=== PATIENT | male | born 1995 | race African-American/Black ===

== ENCOUNTER 2019-12-16 12:10 | Emergency (ER) | payer MEDICARE, MEDICAID, SELFPAY ==
--- NOTE | ~2019-12-16 | CT_ITS ---
EXAMINATION: CT lumbar spine wo con DATE: 12/16/2019 13:22 FIBER PRODUCT CUTTING MACHINE OPERATOR INDICATION: TECHNIQUE: Computed tomography (CT) of the lumbar spine was performed without intravenous contrast. T he dose-length product was 351.18 mGy-cm. COMPARISON: None FINDINGS: Normal lumbar lordosis. Vertebral body and disc heights are preserved. No significant víctor padma soft tissue abnormality. The following disc levels are specifically discussed: T11-T12: The disc does not extend beyond the endplate margin. There is no facet joint osteoarthritis. There is no neural foraminal stenosis. There is no central canal stenosis. T12-L1: The disc does not extend beyond the endplate margin. There is no facet joint osteoarthritis. There is no neural foraminal stenosis. There is no central canal stenosis. L1-L2: The disc does not extend beyond the endplate margin. There is no facet joint osteoarthritis. T here is no neural foraminal stenosis. There is no central canal stenosis. L2-L3: The disc does not extend beyond the endplate margin. There is no facet joint osteoarthritis. T here is no neural foraminal stenosis. There is no central canal stenosis. L3-L4: The disc does not extend beyond the endplate margin. There is no facet joint osteoarthritis. T here is no neural foraminal stenosis. There is no central canal stenosis. L4-L5: The disc does not extend beyond the endplate margin. There is no facet joint osteoarthritis. T here is no neural foraminal stenosis. There is no central canal stenosis. L5-S1: The disc does not extend beyond the endplate margin. There is no facet joint osteoarthritis. T here is no neural foraminal stenosis. There is no central canal stenosis. IMPRESSION: 1. No significant abnormality of the lumbar spine. Reviewed, dictated and finalized at location A. R PRODUCT CUTTING MACHINE OPERATOR
--- NOTE | ~2019-12-16 | CT_ITS ---
EXAMINATION: CT BRAIN W/O DATE: 12/16/2019 13:13 INDICATION: Left arm and leg numbness. TECHNIQUE: Computed tomography (CT) of the head was performed without intravenous contrast. The dose- length product was 351.18 mGy-cm. The mA was adjusted according to patient size. Iterative reconstruc tion technique was employed. COMPARISON: CT dated 04/22/2017 FINDINGS: Normal brain parenchymal volume for age. Normal dukes-white differentiation. No acute intrac ranial hemorrhage, infarction, mass or mass effect. No ventriculomegaly or midline shift. Midline sagittal images demonstrate a normal corpus callosum, c raniovertebral junction and sella turcica. Basilar cisterns are patent. Paranasal sinuses and mastoids are pneumatized. No depressed skull fractures. IMPRESSION: 1. No acute intracranial abnormality. Reviewed, dictated and finalized at location A. ION JOURNALIST
--- NOTE | ~2019-12-16 | CT_ITS ---
EXAMINATION: CT cervical spine wo con DATE: 12/16/2019 13:13 INDICATION: Left arm numbness. TECHNIQUE: Computed tomography (CT) of the cervical spine was performed without intravenous contrast. The dose-length product was 351.18 mGy-cm. Automated exposure control and iterative reconstruction t echnique were employed. COMPARISON: None FINDINGS: Normal cervical alignment. Vertebral body and disc heights are preserved. Lung apices are n ormal. No significant paraspinal soft tissue abnormality. The following disc levels are specifically discussed: C2-C3: The disc does not extend beyond the endplate margin. There is no uncovertebral joint osteoarth ritis. There is no facet joint osteoarthritis. There is no neural foraminal stenosis. There is no petros tral canal stenosis. C3-C4: The disc does not extend beyond the endplate margin. There is no uncovertebral joint osteoarth ritis. There is no facet joint osteoarthritis. There is no neural foraminal stenosis. There is no petros tral canal stenosis. C4-C5: The disc does not extend beyond the endplate margin. There is no uncovertebral joint osteoarth ritis. There is no facet joint osteoarthritis. There is no neural foraminal stenosis. There is no petros tral canal stenosis. C5-C6: The disc does not extend beyond the endplate margin. There is no uncovertebral joint osteoarth ritis. There is no facet joint osteoarthritis. There is no neural foraminal stenosis. There is no petros tral canal stenosis. C6-C7: The disc does not extend beyond the endplate margin. There is no uncovertebral joint osteoarth ritis. There is no facet joint osteoarthritis. There is no neural foraminal stenosis. There is no petros tral canal stenosis. C7-T1: The disc does not extend beyond the endplate margin. There is no uncovertebral joint osteoarth ritis. There is no facet joint osteoarthritis. There is no neural foraminal stenosis. There is no petros tral canal stenosis. IMPRESSION: 1. No acute abnormality of the cervical spine. No significant spinal stenosis. Reviewed, dictated and finalized at location A. DATA HADOOP DEVELOPER
[2019-12-16 12:16] VITALS: BP 131/70; PULSE 66; RESP 16; TEMP 36.4; O2SAT 100
--- NOTE | 2019-12-16 12:17 | ED.BACK ---
HPI - Back Pain/Injury General Chief Complaint: Back Pain/Injury Stated Complaint: back pain/arm/leg numbness Time Seen by Provider: 12/16/19 12:17 Source: patient Mode of arrival: ambulatory Limitations: no limitations History of Present Illness HPI Narrative: A 24 y/o male pt presents to the ED, with c/o chronic low back pain and intermittent numbness in his lt upper and lower extremities that is worsening. Pt states that he has a hx of frequent falls and has fallen twice in the past month. He notes that his entire LLE goes numb causing him to trip and fall. Pt reports a new onset of LUE numbness that began yesterday, but notes the LLE numbness and lower back pain is chronic x 2 years. He states that any strenuous activities aggravates his Sx, and notes taking a Percocet last night with little relief. Pt was Dx with spinal stenosis x 2 years ago and was referred to a specialist at [facility], but states that it has been over a year since his last appointment. He notes having mild CP, but states this is chronic and is associated with his heart murmur. He also reports having blurry vision and a MIDDLETON yesterday, but states that those Sx have improved. Pt denies any SOB, or neck pain. Pt's PCP is Dr. Stanley. elicited complaint: back pain Pertinent past history: prior back pain Onset (ago): day(s) (1) Timing: progressively worsening Similar Symptoms Previously: Yes Radiation: other (LUE, LLE numbness) Exacerbating factors: other (strenuous activity) Associated symptoms: numbness, difficulty walking (frequent falls) and other (blurry vision, headache, low back pain) Treatments prior to arrival: acetaminophen (Percocet) Related Data Allergies Allergy/AdvReac Type Severity Reaction Status Date / Time shellfish derived Allergy Severe ANAPHYLAXIS Verified 12/16/19 12:21 Review of Systems Review of Systems: All systems reviewed & are unremarkable except as noted in HPI and below Constitutional: Constitutional: Reports headache(s) (improved) Cardiovascular: Cardiovascular: Reports chest pain (mild, chronic) Respiratory: Respiratory: Denies dyspnea Musculoskeletal: Musculoskeletal: Reports back pain (lower) and Denies neck pain Neurologic: Reports frequent falls, Reports numbness (LUE, LLE) and Reports other (blurry vision improved) [facility] Past Medical History Medical History (Updated 12/16/19 @ 14:37 by Abiola Carey MD) Anxiety Depression Migraines PTSD (post-traumatic stress disorder) Renal infarct Suicide attempt by drug overdose Surgical History Surgical History (Updated 12/16/19 @ 14:18 by Edgar Lizama [employer]) History of vasectomy Social History Social History (Updated 12/16/19 @ 14:16 by Edgar Lizama [employer]) Smoking status: Current every day smoker Tobacco type: cigarettes Alcohol intake: former Substance use: current Substance use type: marijuana Gender identity (if verbalized by the patient): Male Exam Const: General: cooperative, no acute distress and alert Nutritional Appearance: well nourished Orientation/consciousness: patient oriented x3 Limitations: no limitations HENMT: Mouth: Yes lip normal and Yes moist mucous membranes Resp: Effort & Inspection: normal respiratory effort Auscultation: clear to auscultation bilaterally Cardio: Rate: regular rate Rhythm: regular rhythm GI: GI Palp: Yes abdominal tenderness (mild epigastric) and Yes Soft to palpation Auscultation: normal bowel sounds Back/Spine/Pelvis: Cervical Spine: Cervical spine tenderness (upper) Sacroiliac joints: bilaterally tender to palpation Skin: General skin exam: normal color Neuro: General: patient oriented x3 and deep tendon reflexes 2+ bilaterally Cognition (Neuro): normal cognition Speech: normal speech Motor exam (neuro): 5/5 motor strength present throughout Sensory Exam: Sensory deficit (Neuro) (decreased fine sensation LUE, LLE) Deep tendon reflexes (DTR's): Right brachioradialis reflex intensity gr
--- NOTE | 2019-12-16 12:36 | ECG_ITS ---
Measurements Intervals [place] Rate: 53 P: 40 NC: 150 QRS: 26 QRSD: 102 T: 21 QT: 408 QTc: 383 Interpretive Statements SINUS BRADYCARDIA ST ELEVATION IN DIFFUSE LEADS, PROBABLY EARLY REPOLARIZATION BASELINE WANDER- I, II, AVR, AVL, AVF BORDERLINE ECG Electronically Signed On 12-16-2019 17:32:48 FULL STACK PYTHON DEVELOPER by Bartolome Lambert D.O.
[2019-12-16 12:55] LABS: Basophils Absolute Auto 0.1 K/mm3 (0.0-0.1); Basophils Percent Auto 0.6 % (0.2-1.2); Eosinophils Absolute Auto 0.1 K/mm3 (0-0.3); Eosinophils Percent Auto 1.1 % (0-4.4); Hemoglobin 15.3 g/dL (14.0-18.0); Immature Granulocyte Absolute 0.02 K/mm3 (0.00-0.031); Immature Granulocyte Percent A 0.2 % (0-0.5); Lymphocytes Absolute Auto 2.15 K/mm3 (0.9-3.2); Lymphocytes Percent Auto 25.9 % (18.3-44.2); Mean Corpuscular HGB Conc 33.3 g/dl (32-36); Mean Corpuscular Hemoglobin 29.8 pg (26-34); Mean Corpuscular Volume 89.7 fl (80-100); Mean Platelet Volume 9.8 fl (7.4-10.4); Monocytes Absolute Auto 0.5 K/mm3 (0.1-0.6); Monocytes Percent Auto 6.3 % (2.6-8.5); Neutrophils Absolute Auto 5.5 K/mm3 (1.3-6.7); Neutrophils Percent Auto 65.9 % (45.5-73.1); Platelet Count Result 225 k/mm3 (150-375); Red Blood Count 5.13 M/mm3 (4.6-6.20); Red Cell Distribution Width 12.5 % (11.5-14.5); White Blood Count 8.3 K/mm3 (4.5-10.0)
[2019-12-16 12:59] LABS: Add Urine Microscopic? YES; Appearance Urine Clear (Clear); Bilirubin Urine Negative (Negative); Blood Urine 1+ (Negative); Color Urine Yellow (Yellow); Glucose Urine UA Negative (Negative); Ketones Urine Trace mg/dL (Negative); Leukocyte Esterase Ur Negative LEU/UL (Negative); Mucus Urine Rare /lpf; Nitrate Urine Negative (Negative); Protein Urine 1+ mg/dL (Negative); RBC Urine 0-2 /hpf (0-2); Urobilinogen Urine Negative mg/dL (<2.0); WBC Urine 0-3 /hpf
[2019-12-16 13:02] LABS: Specific Grav Ur 1.031 (1.001-1.035)
[2019-12-16 13:05] LABS: Prothrombin Time 12.7 Seconds (11.1-14.7)
[2019-12-16 13:06] LABS: Partial Thromboplastin Time 28.9 SECONDS (22.3-36.8)
[2019-12-16 13:07] LABS: Alanine Aminotransferase 26 U/L (4-50); Albumin Level 4.4 g/dL (3.5-5.1); Alkaline Phosphatase 67 U/L (38-126); Aspartate Amino Transferase 41 U/L (17-59); Blood Urea Nitrogen 14 mg/dL (9-20); Calcium 9.1 mg/dL (8.4-10.2); Carbon Dioxide 29 mmol/L (22-30); Chloride 102 mmol/L (98-107); Estimated CRCL calculation 72 ml/min; Estimated Glomerular Filt Rate > 60; Glucose 91 mg/dL (75-110); Potassium 4.2 mmol/L (3.4-5.0); Sodium 139 mmol/L (137-145)
[2019-12-16] MEDS: KETOROLAC 30 MG/ML VIAL (*BKC) IV PUSH (13:12)
[2019-12-16 13:19] LABS: Troponin I < 0.012 ng/mL (0.000-0.034)
[2019-12-16 14:51] VITALS: BP 128/79; PULSE 56; RESP 16; O2SAT 99
== END 2019-12-16 14:52 | disposition home or self-care (01) ==
PROVIDERS: Emergency Provider Emergency Medicine; PCP Family Medicine
DX: M54.5 Low back pain (principal); R20.2 Paresthesia of skin; F17.210 Nicotine dependence, cigarettes, uncomplicated; G89.29 Other chronic pain; R00.1 Bradycardia, unspecified; R94.31 Abnormal electrocardiogram [ECG] [EKG]; R01.1 Cardiac murmur, unspecified; R07.9 Chest pain, unspecified
CPT/HCPCS: 36415; 70450; 72125; 72131; 80053; 81001; 84484; 85025; 85610; 85730; 93005; 96374; 99284; J1885

== ENCOUNTER 2020-04-26 05:13 | Emergency (ER) | payer MEDICARE, MEDICAID, SELFPAY ==
--- NOTE | ~2020-04-26 | XR_ITS ---
EXAMINATION: XR hip BI 2V w AP pelvis DATE: 04/26/2020 06:17 INDICATION: Pelvic bone pain TECHNIQUE: Anteroposterior view of the pelvis and anteroposterior and frog-leg lateral views of the l eft hip and anteroposterior and frog-leg lateral views of the right hip and were obtained. COMPARISON: None. FINDINGS: Alignment is normal. No fracture or suspected avascular necrosis. Bilateral hip joint spaces are norm al. Suggestion of mild anterior acetabular over coverage on the left although there is minimal leftwa rd rotation of the pelvis which reduces specificity. No suspicious lytic or blastic bone lesions. Sof t tissues are unremarkable. IMPRESSION: 1. Likely anterior acetabular over coverage on the left can predispose towards pincer-type femoral ac etabular impingement. Otherwise normal study. Reviewed, dictated and finalized at location A. IMPRESSION: 1. Likely anterior acetabular over coverage on the left can predispose towards pincer-type femoral acetabular impingement. Otherwise normal study.
--- NOTE | ~2020-04-26 | XR_ITS ---
EXAMINATION: XR chest 2V DATE: 04/26/2020 06:16 INDICATION: Midsternal chest pain TECHNIQUE: PA and lateral views of the chest were obtained. COMPARISON: Chest radiograph dated 06/08/2019 FINDINGS: The lungs remain clear with no focal airspace opacities, pulmonary edema, pleural effusion or pneumot horax. The cardiomediastinal silhouette is normal. Visualized bones and soft tissues are unremarkable . IMPRESSION: 1. Normal chest radiograph. Reviewed, dictated and finalized at location A. IMPRESSION: 1. Normal chest radiograph.
[2020-04-26 05:16] VITALS: BP 144/95; PULSE 58; RESP 18; TEMP 36.1; O2SAT 100
--- NOTE | 2020-04-26 05:30 | ECG_ITS ---
Measurements Intervals [place] Rate: 48 P: 21 WA: 162 QRS: 36 QRSD: 100 T: 42 QT: 415 QTc: 372 Interpretive Statements SINUS BRADYCARDIA WITH SINUS ARRHYTHMIA ST ELEVATION IN DIFFUSE LEADS- PROBABLY EARLY REPOLARIZATION ABNORMAL ECG Electronically Signed On 04-26-2020 7:33:41 CDT by Bartolome Lambert D.O.
--- NOTE | 2020-04-26 05:30 | ED.CHESTPAIN ---
HPI - Chest Pain General Chief Complaint: Chest Pain Stated Complaint: cp Time Seen by Provider: 04/26/20 05:29 Source: patient Mode of arrival: ambulatory Limitations: no limitations History of Present Illness HPI narrative: Patient is a 24-year-old male who presents for evaluation of bone pain. Patient reports he has had bone pain over the past several weeks. He states he has intermittent bone pain in his bilateral arms and in his pelvis. Reports it is aching in nature, no severe pain currently. When asked if he can pinpoint the pain to shoulders or elbows, hips, he states he is unable to do this. He denies current chest or back pain. Patient's girlfriend is concerned that he has knots all over his body patient denies any rashes, no lower pelvic pain or urinary symptoms. No fever or chills. Related Data Allergies Allergy/AdvReac Type Severity Reaction Status Date / Time shellfish derived Allergy Severe ANAPHYLAXIS Verified 12/16/19 12:21 Review of Systems Review of Systems: Narrative: CONSTITUTIONAL: Denies fever, chills EYES: Denies visual changes, redness, or discharge. ENT: Denies rhinorrhea, congestion CARDIOVASCULAR: Denies chest pain, palpitations, or edema. RESPIRATORY: Denies cough or dyspnea. GASTROINTESTINAL: Denies abdominal pain, nausea, vomiting, or diarrhea. GENITOURINARY: Denies dysuria or hematuria. SKIN: Denies rash or itching. MUSCULOSKELETAL: Denies back pain, reports allover joint pain, denies myalgias NEUROLOGIC: Denies headache, numbness, or weakness. [facility] Past Medical History Medical History Anxiety Depression Migraines PTSD (post-traumatic stress disorder) Renal infarct Schizophrenia Suicide attempt by drug overdose Surgical History Surgical History History of vasectomy Social History Social History Smoking status: Current every day smoker Tobacco type: cigarettes Alcohol intake: former Substance use: current Substance use type: marijuana Gender identity (if verbalized by the patient): Male Exam Narrative: Exam Narrative: GENERAL: Awake, alert, conversant HEAD: Normocephalic, atraumatic. EYES: PERRLA and EOMI. ENT: Nares clear, no rhinorrhea or epistaxis. Mucous membranes moist. NECK: Supple. CHEST: No respiratory distress, breathing even and non labored HEART: Regular rate, sinus rhythm ABDOMEN:Non distended, non tender EXTREMITIES: Normal range of motion. No edema. SKIN: Warm, dry, no rash. NEURO:No focal deficits. Alert and oriented x3 Course Vital Signs Vital signs: Vital Signs Temperature 36.1 C L 04/26/20 05:16 Pulse Rate 58 L 04/26/20 05:16 Respiratory Rate 18 04/26/20 05:16 Blood Pressure 144/95 H 04/26/20 05:16 Pulse Oximetry 100 04/26/20 05:16 Temperature 36.1 C L 04/26/20 06:45 Pulse Rate 58 L 04/26/20 05:16 Respiratory Rate 18 04/26/20 05:16 Blood Pressure 144/95 H 04/26/20 05:16 Pulse Oximetry 100 04/26/20 05:16 MDM - Chest Pain MDM Narrative Medical decision making narrative: Patient presented for chronic history of all over bone pain. Patient denied any chest pain on my exam. EKG without acute ischemic changes. On exam, patient is well-appearing. He does not have any bony tenderness, compartments of the upper and lower extremities are soft, warm and well-perfused. No gross deformities or rashes. Patient laboratory results are reassuring aside from a slightly elevated creatinine kinase, but this would not be consistent with rhabdomyolysis. Patient was advised hydration, I paged the patient's on-call primary care provider to arrange for follow-up. No acute kidney injury. No urinary symptoms. Patient was discharged home with PCP follow-up, negative imaging of pelvis and chest. Differential Diagnosis Differential diagnosis: Likely costochon
--- NOTE | 2020-04-26 05:54 | PC.NURSE ---
Per EDP Freddie, no dose of aspirin needed.
[2020-04-26] MEDS: KETOROLAC (*BKC) 60 MG/2 ML VIAL 30 MG IM (06:15)
[2020-04-26 06:25] LABS: Basophils Absolute Auto 0.1 K/mm3 (0.0-0.1); Basophils Percent Auto 0.7 % (0.2-1.2); Eosinophils Absolute Auto 0.2 K/mm3 (0-0.3); Eosinophils Percent Auto 2.4 % (0-4.4); Hematocrit 42.5 % (42.0-52.0); Hemoglobin 14.9 g/dL (14.0-18.0); Immature Granulocyte Absolute 0.03 K/mm3 (0.00-0.031); Immature Granulocyte Percent A 0.3 % (0-0.5); Lymphocytes Absolute Auto 3.19 K/mm3 (0.9-3.2); Lymphocytes Percent Auto 32.1 % (18.3-44.2); Mean Corpuscular HGB Conc 35.1 g/dl (32-36); Mean Corpuscular Hemoglobin 30.8 pg (26-34); Mean Platelet Volume 9.6 fl (7.4-10.4); Monocytes Absolute Auto 0.6 K/mm3 (0.1-0.6); Neutrophils Absolute Auto 5.8 K/mm3 (1.3-6.7); Neutrophils Percent Auto 58.5 % (45.5-73.1); Platelet Count Result 194 k/mm3 (150-375); Red Blood Count 4.83 M/mm3 (4.6-6.20); Red Cell Distribution Width 12.8 % (11.5-14.5); White Blood Count 9.9 K/mm3 (4.5-10.0)
[2020-04-26 06:37] LABS: Blood Urea Nitrogen 13 mg/dL (9-20); Calcium 8.7 mg/dL (8.4-10.2); Carbon Dioxide 26 mmol/L (22-30); Chloride 105 mmol/L (98-107); Estimated Glomerular Filt Rate > 60; Glucose 97 mg/dL (75-110); Potassium 4.2 mmol/L (3.4-5.0); Sodium 139 mmol/L (137-145)
[2020-04-26 06:38] LABS: Creatine Kinase 960 U/L (55-170)
[2020-04-26 06:45] VITALS: TEMP 36.1
[2020-04-26 07:04] VITALS: BP 128/71; PULSE 48; RESP 21; TEMP 36.8; O2SAT 99
== END 2020-04-26 07:17 | disposition home or self-care (01) ==
PROVIDERS: Emergency Provider Emergency Medicine; PCP Family Medicine
DX: M25.511 Pain in right shoulder (principal); R74.8 Abnormal levels of other serum enzymes; F17.210 Nicotine dependence, cigarettes, uncomplicated; R00.1 Bradycardia, unspecified; R94.31 Abnormal electrocardiogram [ECG] [EKG]; R93.6 Abnormal findings on diagnostic imaging of limbs
CPT/HCPCS: 36415; 71046; 73521; 80048; 82550; 85025; 93005; 96372; 99284; J1885

== ENCOUNTER 2020-05-04 12:55 | Emergency (ER) | payer MEDICARE, MEDICAID, SELFPAY ==
--- NOTE | ~2020-05-04 | CT_ITS ---
EXAMINATION: CT abdomen pelvis w con DATE: 05/04/2020 14:39 INDICATION: Lower abdominal pain and nausea TECHNIQUE: Computed tomography (CT) of the abdomen and pelvis was performed with 100 cc Omnipaque 350 intravenous contrast. The dose-length product was 375.78 mGy-cm. Automated exposure control and iter ative reconstruction technique were employed. COMPARISON: CT dated 06/28/2019. FINDINGS: Lung bases are unremarkable. Heart size normal. No significant pleural or pericardial effus ion. No significant vascular abnormality. No lymphadenopathy. The liver, spleen, pancreas, adrenal glands and kidneys are unremarkable. Gallbladder is present. Non obstructive bowel gas pattern. No abnormal pelvic masses or fluid collections. Normal appendix. No ev idence for diverticulitis. No free air or free fluid. No acute osseous abnormality. IMPRESSION: 1. No acute abdominal abnormality. Reviewed, dictated and finalized at location A.
--- NOTE | ~2020-05-04 | XR_ITS ---
EXAMINATION: XR chest 1V portable DATE: 05/04/2020 14:19 INDICATION: Vomiting. Right lower abdominal tenderness. TECHNIQUE: A single frontal view of the chest was obtained. COMPARISON: Chest 2 views 04/26/2020 FINDINGS: The chest demonstrates clear lungs without pneumonia, pleural effusion, or pneumothorax. Th e heart size is normal. IMPRESSION: 1. No acute cardiopulmonary disease. Reviewed, dictated and finalized at location A.
--- NOTE | ~2020-05-04 | XR_ITS ---
EXAMINATION: XR wrist LT min 3V DATE: 05/04/2020 14:20 INDICATION: Left wrist pain. TECHNIQUE: 4 views of left wrist were obtained. COMPARISON: None. FINDINGS: Bone alignment is normal. No fracture. Joint spaces are well maintained. IMPRESSION: 1. Normal left wrist. Reviewed, dictated and finalized at location A. IMPRESSION: 1. Normal left wrist.
[2020-05-04 12:57] VITALS: BP 136/85; PULSE 71; RESP 15; TEMP 36.3; O2SAT 99
[2020-05-04 13:09] LABS: Basophils Absolute Auto 0.1 K/mm3 (0.0-0.1); Basophils Percent Auto 0.4 % (0.2-1.2); Eosinophils Absolute Auto 0.1 K/mm3 (0-0.3); Hematocrit 47.5 % (42.0-52.0); Hemoglobin 16.6 g/dL (14.0-18.0); Immature Granulocyte Absolute 0.04 K/mm3 (0.00-0.031); Immature Granulocyte Percent A 0.3 % (0-0.5); Lymphocytes Absolute Auto 2.01 K/mm3 (0.9-3.2); Lymphocytes Percent Auto 16.1 % (18.3-44.2); Mean Corpuscular HGB Conc 34.9 g/dl (32-36); Mean Corpuscular Hemoglobin 30.3 pg (26-34); Mean Corpuscular Volume 86.8 fl (80-100); Mean Platelet Volume 9.7 fl (7.4-10.4); Monocytes Percent Auto 7.9 % (2.6-8.5); Neutrophils Absolute Auto 9.3 K/mm3 (1.3-6.7); Neutrophils Percent Auto 74.3 % (45.5-73.1); Platelet Count Result 225 k/mm3 (150-375); Red Blood Count 5.47 M/mm3 (4.6-6.20); Red Cell Distribution Width 12.6 % (11.5-14.5); White Blood Count 12.5 K/mm3 (4.5-10.0)
[2020-05-04 13:20] LABS: Alanine Aminotransferase 26 U/L (4-50); Albumin Level 4.8 g/dL (3.5-5.1); Alkaline Phosphatase 90 U/L (38-126); Aspartate Amino Transferase 32 U/L (17-59); Bilirubin,Total 1.2 mg/dL (0.2-1.3); Blood Urea Nitrogen 11 mg/dL (9-20); Calcium 9.5 mg/dL (8.4-10.2); Carbon Dioxide 24 mmol/L (22-30); Chloride 104 mmol/L (98-107); Estimated CRCL calculation 78 ml/min; Estimated Glomerular Filt Rate > 60; Glucose 108 mg/dL (75-110); Lipase 21 U/L (23-300); Potassium 4.4 mmol/L (3.4-5.0); Sodium 137 mmol/L (137-145)
[2020-05-04 13:43] LABS: Add Urine Microscopic? YES; Appearance Urine Clear (Clear); Bilirubin Urine Negative (Negative); Blood Urine Negative (Negative); Color Urine Straw (Yellow); Glucose Urine UA Negative (Negative); Ketones Urine Negative (Negative); Leukocyte Esterase Ur Negative LEU/UL (Negative); Mucus Urine Rare /lpf; Nitrate Urine Negative (Negative); Protein Urine Negative (Negative); RBC Urine 0-2 /hpf (0-2); Urobilinogen Urine Negative mg/dL (<2.0); WBC Urine 0-3 /hpf
--- NOTE | 2020-05-04 14:01 | ED.NAVMDI ---
HPI - Nausea/Vomiting/Diarrhea General Chief complaint: Nausea/Vomiting/Diarrhea Stated complaint: Vomiting Time Seen by Provider: 05/04/20 13:50 Source: patient Mode of arrival: ambulatory Limitations: no limitations History of Present Illness HPI Narrative: This patient is a 24 year old male who presents for evaluation of nausea, vomiting since yesterday. He states he had abdominal pain which has resolved and he denies diarrhea. He also reports mild cough but no shortness of breath. He also reports sore throat. He denies sick contacts. MD elicited complaint: nausea and vomiting Onset (ago): day(s) (1) Associated nausea: Yes Associated abdominal pain: Yes Pain consistency: now resolved Exacerbating factors: eating Associated symptoms: fever/chills and nausea/vomiting Related Data Allergies Allergy/AdvReac Type Severity Reaction Status Date / Time shellfish derived Allergy Severe ANAPHYLAXIS Verified 05/04/20 13:01 Review of Systems Review of Systems: All systems reviewed & are unremarkable except as noted in HPI and below Constitutional: Constitutional: Denies chills and Reports fever(s) ENT: Reports sore throat Cardiovascular: Cardiovascular: Denies chest pain Respiratory: Respiratory: Reports cough and Denies dyspnea Gastrointestinal: Gastrointestinal: Reports abdominal pain, Reports nausea and Reports vomiting PMFSH Social History Social History Smoking status: Current every day smoker Tobacco type: cigarettes Alcohol intake: former Substance use: current Substance use type: marijuana Gender identity (if verbalized by the patient): Male Exam Narrative: Exam Narrative: GENERAL: Well-appearing, well-nourished, and in no acute distress. HEAD: Normocephalic, atraumatic EYES: PERRLA and EOMI, conjunctiva clear without discharge EARS: TM's clear bilaterally without erythema or dullness NOSE: Nares clear, no rhinorrhea or epistaxis THROAT:Mucous membranes moist, Oropharynx normal without erythema, exudate, peritonsillar swelling or fluctuance NECK: Supple, without lymphadenopathy or mass RESPIRATORY: No respiratory distress, Airway patent, Respirations non-labored, Clear to auscultation without rales, rhonchi or wheeze HEART: Regular rate and rhythm. No murmur heard. Normal peripheral pulses. ABDOMEN: Soft, RLQ tenderness, nondistended, normal active bowel sounds. No masses. No rebound or guarding, No organomegaly. EXTREMITIES: No edema, normal strength with full range of motion. SKIN: Warm, dry, normal color without rash NEURO: Alert and oriented x3. CN 2-12 grossly intact. No focal deficits. PSYCH: Normal mood and affect. Course Reevaluation(s) Reevaluation #1: Patient states he feels better. He was able to tolerate fluid and crackers. I have discussed with him about testing for COVID and quaranting. His primary care physician is Dr. Stanley. Date: 05/04/20 Time: 16:23 Vital Signs Vital signs: Vital Signs Temperature 97.3 F L 05/04/20 12:57 Pulse Rate 71 05/04/20 12:57 Respiratory Rate 15 05/04/20 12:57 Blood Pressure 136/85 05/04/20 12:57 Pulse Oximetry 99 05/04/20 12:57 Temperature 97.3 F L 05/04/20 12:57 Pulse Rate 80 05/04/20 17:16 Respiratory Rate 17 05/04/20 17:16 Blood Pressure 136/88 05/04/20 17:16 Pulse Oximetry 97 05/04/20 17:16 MDM - Nausea/Vomiting/Diarrhea Lab Data Attestation: I reviewed the patient's lab results. Result diagrams: 05/04/20 13:02 05/04/20 13:02 Labs: Lab Results 05/04/20 05/04/20 05/04/20 Range/Units 13:02 13:02 13:10 WBC 12.5 H (4.5-10.0) K/mm3 RBC 5.47 (4.6-6.20) M/mm3 Hgb 16.6 (14.0-18.0) g/dL Hct 47.5 (42.0-52.0) % MCV 86.8 (80-100) fl MCH 30.3 (26-34) pg MCHC 34.9 (32-36) g/dl RDW 12.6 (11.5-14.5) % Plt Count 225 (150-375) k/mm3 MPV 9.7 (7.4-10.4)
[2020-05-04] MEDS: LACTATED RINGERS 1,000 ML 999 ML IV CONT (14:36)
[2020-05-04] MEDS: ONDANSETRON INJ 4 MG/2 ML VIAL IV PUSH ×2 (14:36→15:20)
[2020-05-04 17:16] VITALS: BP 136/88; PULSE 80; RESP 17; O2SAT 97
[2020-05-06 10:43] LABS: SARS-CoV-2 RNA PCR Negative
== END 2020-05-04 17:20 | disposition home or self-care (01) ==
PROVIDERS: Emergency Medicine; Emergency Provider General Practice; PCP Family Medicine
DX: R11.2 Nausea with vomiting, unspecified (principal); Z20.828 Contact with and (suspected) exposure to other viral communicable diseases; F17.210 Nicotine dependence, cigarettes, uncomplicated; M25.532 Pain in left wrist
CPT/HCPCS: 36415; 71045; 73110; 74177; 80053; 81001; 83690; 85025; 87081; 87635; 87880; 96365; 96375; 96376; 99284; C9803; J0131; J2405; J7120; Q9967; U0003

== ENCOUNTER 2020-07-01 18:40 | Emergency (ER) | payer MEDICARE, MEDICAID, SELFPAY ==
[2020-07-01 18:52] VITALS: BP 138/82; PULSE 65; RESP 14; TEMP 36.9; O2SAT 100
[2020-07-01 18:55] VITALS: BP 138/82; PULSE 65; RESP 14; TEMP 36.9; O2SAT 100
[2020-07-01 19:07] LABS: Basophils Absolute Auto 0.1 K/mm3 (0.0-0.1); Basophils Percent Auto 0.6 % (0.2-1.2); Eosinophils Absolute Auto 0.1 K/mm3 (0-0.3); Eosinophils Percent Auto 0.7 % (0-4.4); Hematocrit 45.8 % (42.0-52.0); Hemoglobin 16.2 g/dL (14.0-18.0); Immature Granulocyte Absolute 0.03 K/mm3 (0.00-0.031); Immature Granulocyte Percent A 0.3 % (0-0.5); Lymphocytes Absolute Auto 2.54 K/mm3 (0.9-3.2); Lymphocytes Percent Auto 22.6 % (18.3-44.2); Mean Corpuscular HGB Conc 35.4 g/dl (32-36); Mean Corpuscular Hemoglobin 30.5 pg (26-34); Mean Corpuscular Volume 86.1 fl (80-100); Monocytes Absolute Auto 0.5 K/mm3 (0.1-0.6); Monocytes Percent Auto 4.8 % (2.6-8.5); Platelet Count Result 225 k/mm3 (150-375); Red Blood Count 5.32 M/mm3 (4.6-6.20); Red Cell Distribution Width 12.8 % (11.5-14.5); White Blood Count 11.2 K/mm3 (4.5-10.0)
[2020-07-01 19:20] LABS: Alanine Aminotransferase 20 U/L (4-50); Albumin Level 4.6 g/dL (3.5-5.1); Alkaline Phosphatase 77 U/L (38-126); Anion Gap 7 mmol/L (8-16); Aspartate Amino Transferase 39 U/L (17-59); Bilirubin,Total 1.1 mg/dL (0.2-1.3); Blood Urea Nitrogen 12 mg/dL (9-20); Calcium 9.1 mg/dL (8.4-10.2); Carbon Dioxide 26 mmol/L (22-30); Chloride 106 mmol/L (98-107); Estimated CRCL calculation 78 ml/min; Estimated Glomerular Filt Rate > 60; Glucose 98 mg/dL (75-110); Lipase 25 U/L (23-300); Potassium 3.8 mmol/L (3.4-5.0); Sodium 139 mmol/L (137-145)
[2020-07-01 19:20] LABS: Add Urine Microscopic? YES; Appearance Urine Clear (Clear); Bilirubin Urine Negative (Negative); Blood Urine Negative (Negative); Color Urine Yellow (Yellow); Glucose Urine UA Negative (Negative); Ketones Urine Negative (Negative); Leukocyte Esterase Ur Negative LEU/UL (Negative); Nitrate Urine Negative (Negative); Protein Urine Negative (Negative); RBC Urine 0-2 /hpf (0-2); WBC Urine 0-3 /hpf
[2020-07-01] MEDS: SODIUM CHLORIDE 0.9% IV 1,000 ML 999 ML IV CONT (19:47)
[2020-07-01] MEDS: METOCLOPRAMIDE HCL INJ 10 MG/2 ML VIAL IV PUSH (19:48)
[2020-07-01] MEDS: FAMOTIDINE 20 MG/2 ML VIAL IV PUSH (19:48)
--- NOTE | 2020-07-01 20:23 | ED.ABDPAIN ---
HPI - Abdominal Pain General Chief Complaint: Abdominal Pain Stated Complaint: n/v, constipated - blood in stool Time Seen by Provider: 07/01/20 18:58 Source: patient Mode of arrival: ambulatory Limitations: no limitations History of Present Illness HPI narrative: Patient is a 24-year-old male who presents with nausea and vomiting with history of similar occurrence in the past patient notes that he typically takes Reglan for his nausea and vomiting but today he has felt more nauseous with some mild discomfort of the abdomen denies any URI symptoms. Patient otherwise resting comfortably upon arrival in no distress denies rectal bleeding melena Related Data Allergies Allergy/AdvReac Type Severity Reaction Status Date / Time shellfish derived Allergy Severe ANAPHYLAXIS Verified 07/01/20 18:57 Review of Systems Review of Systems: All systems reviewed & are unremarkable except as noted in HPI and below PMFSH Past Medical History Medical History Anxiety Depression Migraines PTSD (post-traumatic stress disorder) Renal infarct Schizophrenia Suicide attempt by drug overdose Surgical History Surgical History History of vasectomy Social History Social History Smoking status: Current every day smoker Tobacco type: cigarettes Alcohol intake: former Substance use: current Substance use type: marijuana Gender identity (if verbalized by the patient): Male Sexual Orientation (if Verbalized by the Patient): Straight or Heterosexual Exam Narrative: Exam Narrative: GENERAL: Well-appearing, well-nourished, and in no acute distress. HEAD: Normocephalic, atraumatic. EYES: PERRLA and EOMI. ENT: Nares clear, no rhinorrhea or epistaxis. Mucous membranes moist. CHEST: Clear to auscultation. No respiratory distress. No wheezes rales or rhonchi HEART: Regular rate and rhythm. No murmur heard. Normal peripheral pulses. ABDOMEN: Soft, nontender, nondistended EXTREMITIES: Normal range of motion. No edema. SKIN: Warm, dry, no rash. NEURO: No focal deficits. Alert and oriented x3. PSYCH: Normal mood and affect. Course Course Emergency Course: Patient given medications in the emergency department with improvement of symptoms patient feels comfortable to go home patient will follow with primary care for further evaluation and was also given reasons to return Vital Signs Vital signs: Vital Signs Temperature 98.5 F 07/01/20 18:52 Pulse Rate 65 07/01/20 18:52 Respiratory Rate 14 07/01/20 18:52 Blood Pressure 138/82 07/01/20 18:52 Pulse Oximetry 100 07/01/20 18:52 Temperature 98.5 F 07/01/20 18:55 Pulse Rate 65 07/01/20 18:55 Respiratory Rate 14 07/01/20 18:55 Blood Pressure 138/82 07/01/20 18:55 Pulse Oximetry 100 07/01/20 18:55 MDM - Abdominal Pain MDM Narrative Medical decision making narrative: Patient in the room no high risk changes in the blood work felt appropriate for outpatient reevaluation given resolution of symptoms and nontender abdominal exam Lab Data Result diagrams: 07/01/20 18:50 07/01/20 18:50 Labs: Lab Results 07/01/20 07/01/20 07/01/20 Range/Units 18:50 18:50 19:04 WBC 11.2 H (4.5-10.0) K/mm3 RBC 5.32 (4.6-6.20) M/mm3 Hgb 16.2 (14.0-18.0) g/dL Hct 45.8 (42.0-52.0) % MCV 86.1 (80-100) fl MCH 30.5 (26-34) pg MCHC 35.4 (32-36) g/dl RDW 12.8 (11.5-14.5) % Plt Count 225 (150-375) k/mm3 MPV 10.0 (7.4-10.4) fl Immature Gran % (Auto) 0.3 (0-0.5) % Neut % (Auto) 71.0 (45.5-73.1) % Lymph % (Auto) 22.6 (18.3-44.2) % Eddy % (Auto) 4.8 (2.6-8.5) % Eos % (Auto) 0.7 (0-4.4) % Baso % (Auto) 0.6 (0.2-1.2) % Lymph # (Auto) 2.54 (0.9-3.2) K/mm3 Eddy # (Auto) 0.5 (0.1-0.6) K/mm3 Eos # (Au
[2020-07-01 20:51] VITALS: BP 125/63; PULSE 56; RESP 18; O2SAT 98
== END 2020-07-01 20:52 | disposition home or self-care (01) ==
PROVIDERS: Emergency Medicine; Emergency Provider Emergency Medicine; PCP Family Medicine
DX: R11.2 Nausea with vomiting, unspecified (principal); F17.210 Nicotine dependence, cigarettes, uncomplicated; F41.9 Anxiety disorder, unspecified; F32.9 Major depressive disorder, single episode, unspecified
CPT/HCPCS: 36415; 80053; 81001; 83690; 85025; 96361; 96365; 96375; 99284; J0131; J2765; J7030

== ENCOUNTER 2020-07-17 18:40 | Emergency (ER) | payer MEDICARE, MEDICAID, SELFPAY ==
[2020-07-17 18:45] VITALS: BP 131/76; PULSE 72; RESP 16; TEMP 36.5; O2SAT 100
[2020-07-17 19:01] LABS: Basophils Absolute Auto 0.1 K/mm3 (0.0-0.1); Basophils Percent Auto 0.8 % (0.2-1.2); Eosinophils Absolute Auto 0.2 K/mm3 (0-0.3); Eosinophils Percent Auto 2.3 % (0-4.4); Hematocrit 47.7 % (42.0-52.0); Hemoglobin 16.8 g/dL (14.0-18.0); Immature Granulocyte Absolute 0.03 K/mm3 (0.00-0.031); Immature Granulocyte Percent A 0.3 % (0-0.5); Lymphocytes Absolute Auto 2.84 K/mm3 (0.9-3.2); Lymphocytes Percent Auto 26.7 % (18.3-44.2); Mean Corpuscular HGB Conc 35.2 g/dl (32-36); Mean Corpuscular Hemoglobin 30.6 pg (26-34); Mean Corpuscular Volume 86.9 fl (80-100); Mean Platelet Volume 9.8 fl (7.4-10.4); Monocytes Absolute Auto 0.5 K/mm3 (0.1-0.6); Monocytes Percent Auto 5.1 % (2.6-8.5); Neutrophils Absolute Auto 6.9 K/mm3 (1.3-6.7); Neutrophils Percent Auto 64.8 % (45.5-73.1); Platelet Count Result 227 k/mm3 (150-375); Red Blood Count 5.49 M/mm3 (4.6-6.20); Red Cell Distribution Width 12.5 % (11.5-14.5); White Blood Count 10.6 K/mm3 (4.5-10.0)
[2020-07-17 19:13] LABS: Alanine Aminotransferase 22 U/L (4-50); Albumin Level 4.6 g/dL (3.5-5.1); Alkaline Phosphatase 79 U/L (38-126); Anion Gap 7 mmol/L (8-16); Aspartate Amino Transferase 38 U/L (17-59); Bilirubin,Total 1.2 mg/dL (0.2-1.3); Blood Urea Nitrogen 13 mg/dL (9-20); Calcium 9.1 mg/dL (8.4-10.2); Carbon Dioxide 27 mmol/L (22-30); Chloride 104 mmol/L (98-107); Estimated CRCL calculation 85 ml/min; Estimated Glomerular Filt Rate > 60; Glucose 96 mg/dL (75-110); Lipase 33 U/L (23-300); Potassium 3.8 mmol/L (3.4-5.0); Sodium 138 mmol/L (137-145)
[2020-07-17 19:17] LABS: Add Urine Microscopic? NO; Appearance Urine Clear (Clear); Bilirubin Urine Negative (Negative); Blood Urine Negative (Negative); Color Urine Yellow (Yellow); Glucose Urine UA Negative (Negative); Ketones Urine Negative (Negative); Leukocyte Esterase Ur Negative LEU/UL (Negative); Nitrate Urine Negative (Negative); Protein Urine Negative (Negative); Specific Grav Ur 1.029 (1.001-1.035); Urobilinogen Urine Negative mg/dL (<2.0)
[2020-07-17 19:23] VITALS: BP 131/76; PULSE 72; RESP 16; TEMP 36.5; O2SAT 98
--- NOTE | 2020-07-17 19:26 | ED.ABDPAIN ---
HPI - Abdominal Pain General Chief Complaint: Abdominal Pain Stated Complaint: abd pain Time Seen by Provider: 07/17/20 19:13 History of Present Illness HPI narrative: Pt c/o epigastric, burning 04/03, non radiating, started last night. Denies n/v/d or fever. Denies cp or sob. Denies GI bleed. Related Data Allergies Allergy/AdvReac Type Severity Reaction Status Date / Time shellfish derived Allergy Severe ANAPHYLAXIS Verified 07/01/20 18:57 Review of Systems Review of Systems: All systems reviewed & are unremarkable except as noted in HPI and below Constitutional: Constitutional: Denies body ache(s), Denies chills, Denies excessive sweating, Denies fatigue, Denies fever(s), Denies headache(s), Denies lethargy, Denies malaise, Denies weakness and Denies weight loss Eyes: Eyes: Denies blurry vision, Denies change in vision and Denies loss of vision ENT: Denies dizziness, Denies ear discharge, Denies headache(s), Denies lip swelling, Denies epistaxis, Denies nasal congestion, Denies neck pain, Denies throat swelling and Denies tongue swelling Cardiovascular: Cardiovascular: Denies chest pain, Denies chest pain at rest, Denies chest pain with activity, Denies diaphoresis, Denies rapid heart rate, Denies edema, Denies irregular heart rhythm, Denies lightheadedness, Denies palpitations, Denies dyspnea and Denies dyspnea on exertion Respiratory: Respiratory: Denies chest congestion, Denies cough, Denies hemoptysis, Denies dyspnea and Denies dyspnea on exertion Gastrointestinal: Gastrointestinal: Reports abdominal pain, Denies melena, Denies hematochezia, Denies diarrhea, Denies nausea, Denies vomiting and Denies hematemesis Musculoskeletal: Musculoskeletal: Denies abnormal gait, Denies deformity, Denies joint swelling, Denies limited range of motion, Denies neck pain and Denies numbness Neurologic: Denies Abnormal speech present, Denies abnormal gait, Denies confusion, Denies dizziness, Denies headache(s), Denies focal weakness, Denies loss of vision, Denies numbness, Denies Other visual disturbances, Denies Sensory deficit (Neuro) and Denies weakness Psychiatric: Psychiatric: Denies confusion, Denies depression, Denies auditory hallucinations, Denies homicidal ideation and Denies suicidal ideation Endocrine: Endocrine: Denies cold intolerance, Denies excessive sweating, Denies fatigue, Denies heat intolerance and Denies palpitations Hematologic/Lymphatic: Hematologic/Lymphatic: Denies easy bleeding and Denies easy bruising Allergic/Immunologic: Allergic/Immunologic: Denies lip swelling, Denies throat swelling and Denies tongue swelling [facility] Social History Social History Smoking status: Current every day smoker Tobacco type: cigarettes Alcohol intake: former Substance use: current Substance use type: marijuana Gender identity (if verbalized by the patient): Male Exam Const: General: cooperative, healthy appearing, comfortable, no acute distress, well developed, alert and awake; No confusion Orientation/consciousness: oriented to person, oriented to place, oriented to time, patient oriented x3 and No confusion Limitations: no limitations HENMT: Head: normal to inspection, normocephalic and atraumatic Ears: hearing grossly normal bilaterally, TM normal on the right and TM normal on the left General nose exam: Normal external nose present, Normal nares present and No nasal discharge present Face and sinus: normal facial exam Mouth: Yes Normal oral and palatal mucosa present, Yes lip normal, Yes tongue normal and Yes oropharynx normal Throat: posterior oropharynx normal, tonsils normal and uvula midline Eyes: General: appearance normal, both eyes and all related structures Pupils: Equal, round and reactive pupils present EOM: EOMs intact bilaterally Neck: Neck: normal visual inspection, full ROM, no lymphadenopathy and no meningeal signs Chest: Chest palpation & i
[2020-07-17] MEDS: FAMOTIDINE 20 MG TABLET PO (21:17)
[2020-07-17 21:18] VITALS: BP 130/80; PULSE 80; RESP 18; TEMP 36.7; O2SAT 99
[2020-07-17] MEDS: BELLADONNA ALK/PHENOB ELIX 10 ML, MAG HYDROX/ALUMINUM HYD/SIMETH 30 ML, LIDOCAINE HCL 2... PO (21:18)
== END 2020-07-17 21:19 | disposition home or self-care (01) ==
PROVIDERS: Emergency Medicine; Emergency Provider Emergency Medicine; PCP Family Medicine
DX: K29.00 Acute gastritis without bleeding (principal); F17.210 Nicotine dependence, cigarettes, uncomplicated
CPT/HCPCS: 36415; 80053; 81003; 83690; 85025; 99283; A9270

== ENCOUNTER 2020-12-31 08:25 | Emergency (ER) | payer MEDICARE, MEDICAID, SELFPAY ==
--- NOTE | ~2020-12-31 | XR_ITS ---
EXAMINATION: XR lumbar spine 2-3V DATE: 12/31/2020 09:31 INDICATION: Low back pain. TECHNIQUE: 3 views of lumbar spine were obtained. COMPARISON: Lumbar spine radiographs 04/22/2017 FINDINGS: Bone alignment is normal. Vertebral body heights and intervertebral disc heights are normal . The facet joints are unremarkable. IMPRESSION: 1. Normal lumbar spine. Reviewed, dictated and finalized at location A. TACKER IMPRESSION: 1. Normal lumbar spine.
--- NOTE | ~2020-12-31 | XR_ITS ---
EXAMINATION: [id number] EXAM DATE: 12/31/2020 09:30 INDICATION: Initial encounter following injury, with pain of the chest, left ribs. TECHNIQUE: Frontal projection of the upper left ribs, frontal projection of the lower left ribs, obli que projection of the left ribs, frontal chest x-ray(s) for interpretation. There is no prior study for comparison. FINDINGS: There are no displaced acute left rib fractures identified. There is no soft tissue abnor mality seen. No confluent consolidation, pneumothorax or pleural effusion suspected. Cardiomediastina l silhouette is normal. IMPRESSION: No displaced left rib fractures. Reviewed, dictated and finalized at location B. TATISTICS PROFESSOR
[2020-12-31 08:29] VITALS: BP 134/77; PULSE 60; RESP 18; TEMP 36.1; O2SAT 100
[2020-12-31 09:00] LABS: Add Urine Microscopic? NO; Appearance Urine Clear (Clear); Bilirubin Urine Negative (Negative); Blood Urine Negative (Negative); Color Urine Straw (Yellow); Glucose Urine UA Negative (Negative); Ketones Urine Negative (Negative); Leukocyte Esterase Ur Negative LEU/UL (Negative); Nitrate Urine Negative (Negative); Protein Urine Negative (Negative); Specific Grav Ur 1.011 (1.001-1.035); Urobilinogen Urine Negative mg/dL (<2.0)
--- NOTE | 2020-12-31 09:18 | ED.GENADULT ---
HPI - General Adult General Chief complaint: Back Pain/Injury Stated complaint: back pain Time Seen by Provider: 12/31/20 08:45 Source: patient History of Present Illness HPI narrative: Patient is a 25 y/o male complaining of worsening low back pain. He has chronic back pain, but it's worse since yesterday. He describes his pain as throbbing and rates it as 8/10. There is no alleviating or exacerbating factor. His pain radiates to left leg sometimes. He also has been having some left sided rib pain worse with respiration starting 4 days ago. Related Data Allergies Allergy/AdvReac Type Severity Reaction Status Date / Time shellfish derived Allergy Severe ANAPHYLAXIS Verified 12/31/20 08:39 Review of Systems Constitutional: Constitutional: Denies chills, Denies fever(s), Denies headache(s) and Denies weakness Eyes: Eyes: Denies blurry vision ENT: Denies headache(s) and Denies neck pain Cardiovascular: Cardiovascular: Denies chest pain and Denies dyspnea Respiratory: Respiratory: Denies cough, Reports pain on inspiration and Denies dyspnea Gastrointestinal: Gastrointestinal: Denies abdominal pain, Denies diarrhea, Denies nausea and Denies vomiting Genitourinary: Genitourinary: Denies hematuria and Denies dysuria Musculoskeletal: Musculoskeletal: Reports back pain and Denies neck pain Neurologic: Denies headache(s) and Denies weakness PMFSH Past Medical History Medical History (Updated 12/31/20 @ 10:44 by Aurea Piña MD) Anxiety Depression Migraines PTSD (post-traumatic stress disorder) Renal infarct Schizophrenia Suicide attempt by drug overdose Surgical History Surgical History History of vasectomy Social History Social History Smoking status: Current every day smoker Tobacco type: cigarettes Alcohol intake: former Substance use: current Substance use type: marijuana Gender identity (if verbalized by the patient): Male Exam Const: General: no acute distress and well developed Orientation/consciousness: oriented to person, oriented to place, oriented to time and patient oriented x3 HENMT: Head: normocephalic Ears: external ears normal General nose exam: Normal external nose present Eyes: General: appearance normal, both eyes and all related structures Conjunctivae: conjunctivae normal Neck: Neck: normal visual inspection and full ROM Chest: Chest palpation & inspection: normal inspection of the chest and no tenderness Resp: Effort & Inspection: normal respiratory effort Auscultation: clear to auscultation bilaterally Cardio: Rate: regular rate Rhythm: regular rhythm GI: GI Palp: No abdominal tenderness and Yes Soft to palpation Skin: General skin exam: normal color and turgor normal Neuro: General: oriented to person, oriented to place, oriented to time and patient oriented x3 Cognition (Neuro): normal cognition Extrem: General: normal to inspection, full ROM and no pedal edema Psych: Appearance: grossly normal Mental Status: mental status grossly normal Affect: normal affect Course Vital Signs Vital signs: Vital Signs Temperature 36.1 C L 12/31/20 08:29 Pulse Rate 60 12/31/20 08:29 Respiratory Rate 18 12/31/20 08:29 Blood Pressure 134/77 12/31/20 08:29 Pulse Oximetry 100 12/31/20 08:29 Temperature 36.1 C L 12/31/20 08:29 Pulse Rate 110 H 12/31/20 10:52 Respiratory Rate 18 12/31/20 10:52 Blood Pressure 136/80 12/31/20 10:52 Pulse Oximetry 98 12/31/20 10:52 Medical Decision Making Vital Signs Vital Signs: Vital Signs Temperature 36.1 C L 12/31/20 08:29 Pulse Rate 60 12/31/20 08:29 Respiratory Rate 18 12/31/20 08:29 Blood Pressure 134/77 12/31/20 08:29 Pulse Oximetry 100 12/31/20 08:29 Temperature 36.1 C L 12/31/20 08:29 Pulse Rate 110 H 12/31/20 10:52 Respiratory Rate 18 12/31/20 10:52
[2020-12-31] MEDS: KETOROLAC 30 MG/ML VIAL (*BKC) IV PUSH (09:46)
[2020-12-31 09:50] LABS: Basophils Absolute Auto 0.1 K/mm3 (0.0-0.1); Basophils Percent Auto 0.9 % (0.2-1.2); Eosinophils Absolute Auto 0.1 K/mm3 (0-0.3); Hematocrit 45.4 % (42.0-52.0); Hemoglobin 15.6 g/dL (14.0-18.0); Immature Granulocyte Absolute 0.01 K/mm3 (0.00-0.031); Immature Granulocyte Percent A 0.1 % (0-0.5); Lymphocytes Absolute Auto 2.15 K/mm3 (0.9-3.2); Lymphocytes Percent Auto 31.3 % (18.3-44.2); Mean Corpuscular HGB Conc 34.4 g/dl (32-36); Mean Corpuscular Hemoglobin 30.5 pg (26-34); Mean Corpuscular Volume 88.7 fl (80-100); Monocytes Absolute Auto 0.3 K/mm3 (0.1-0.6); Monocytes Percent Auto 4.7 % (2.6-8.5); Neutrophils Absolute Auto 4.2 K/mm3 (1.3-6.7); Platelet Count Result 183 k/mm3 (150-375); Red Blood Count 5.12 M/mm3 (4.6-6.20); Red Cell Distribution Width 12.5 % (11.5-14.5); White Blood Count 6.9 K/mm3 (4.5-10.0)
[2020-12-31 09:59] LABS: Anion Gap 3 mmol/L (8-16); Blood Urea Nitrogen 11 mg/dL (9-20); Calcium 8.9 mg/dL (8.4-10.2); Carbon Dioxide 31 mmol/L (22-30); Chloride 107 mmol/L (98-107); Estimated CRCL calculation 71 ml/min; Estimated Glomerular Filt Rate > 60; Glucose 100 mg/dL (75-110); Potassium 4.3 mmol/L (3.4-5.0); Sodium 141 mmol/L (137-145)
[2020-12-31 10:02] LABS: D Dimer 0.27 ug/mL (<0.48)
[2020-12-31 10:52] VITALS: BP 136/80; PULSE 110; RESP 18; O2SAT 98
== END 2020-12-31 10:53 | disposition home or self-care (01) ==
PROVIDERS: Emergency Provider Emergency Medicine; PCP Family Medicine
DX: M54.5 Low back pain (principal); R07.81 Pleurodynia; G89.29 Other chronic pain; F17.210 Nicotine dependence, cigarettes, uncomplicated
CPT/HCPCS: 36415; 71101; 72100; 80048; 81003; 85025; 85380; 96374; 99284; J1885

== ENCOUNTER 2021-02-06 12:28 | Emergency (ER) | payer MEDICARE, MEDICAID, SELFPAY ==
--- NOTE | ~2021-02-06 | US_ITS ---
EXAMINATION: US scrotum doppler DATE: 02/06/2021 15:42 INDICATION: Testicular pain. TECHNIQUE: Grayscale and Doppler ultrasound images of the testes were obtained. COMPARISON: Ultrasound 08/16/2019 FINDINGS: The right testis measures 3.9 x 2.2 x 3.2 cm. The left testis measures 4.3 x 2.3 x 3.0 cm. There is normal vascular flow to both testes. The right epididymis is normal with normal vascular eboni w. The left epididymis is normal with normal vascular flow. There is no varicocele or hydrocele. IMPRESSION: 1. Normal testes. Reviewed, dictated and finalized at location A. IMPRESSION: 1. Normal testes.
--- NOTE | ~2021-02-06 | XR_ITS ---
XR toe 1st RT min 2V DATE: 02/06/2021 15:52 INDICATION: Plantar wound TECHNIQUE: 4 views of the great toe COMPARISON: None FINDINGS: No fracture, dislocation, periosteal reaction or bone destruction. Joint spaces are preserv ed. No subcutaneous emphysema or radiopaque soft tissue foreign body. IMPRESSION: Negative Reviewed, dictated and finalized at location A. IMPRESSION: Negative
[2021-02-06 12:40] VITALS: BP 141/77; PULSE 54; RESP 14; TEMP 36.9; O2SAT 99
[2021-02-06 12:49] LABS: Glucose Point of Care 87 (65-105)
[2021-02-06 13:06] LABS: Add Urine Microscopic? NO; Appearance Urine Clear (Clear); Bilirubin Urine Negative (Negative); Blood Urine Negative (Negative); Color Urine Yellow (Yellow); Glucose Urine UA Negative (Negative); Ketones Urine Negative (Negative); Leukocyte Esterase Ur Negative LEU/UL (Negative); Nitrate Urine Negative (Negative); Protein Urine Negative (Negative); Specific Grav Ur 1.012 (1.001-1.035); Urobilinogen Urine Negative mg/dL (<2.0)
--- NOTE | 2021-02-06 14:52 | ED.GENADULT ---
HPI - General Adult General Chief complaint: Unspecified Stated complaint: foot wound, back pain Time Seen by Provider: 02/06/21 14:42 Source: patient Mode of arrival: ambulatory Limitations: no limitations History of Present Illness HPI narrative: This is a 25 year old male that presents to the ER for urinary frequency x 1 week. Associated with dull low back pain that is constant. He was worried he may have a STD. Denies any rashes or abnormal penile discharge. Also reports a wound on the right great toe that he noted recently. No known injuries or trauma to the foot. Reports nausea and vomiting which is unchanged for him as he has chronic problems with nausea. Denies fever, abdominal pain, dysuria or hematuria. Related Data Allergies Allergy/AdvReac Type Severity Reaction Status Date / Time shellfish derived Allergy Severe ANAPHYLAXIS Verified 12/31/20 08:39 Review of Systems Review of Systems: Narrative: CONSTITUTIONAL: Denies fever GASTROINTESTINAL: Reports nausea, vomiting GENITOURINARY: Denies dysuria or hematuria. SKIN: Denies rash MUSCULOSKELETAL: Reports back pain, and myalgia. All systems reviewed & are unremarkable except as noted in HPI and below PMFSH Past Medical History Medical History (Updated 02/06/21 @ 16:34 by Lashonda Ramirez PA-C) Anxiety Depression Migraines PTSD (post-traumatic stress disorder) Renal infarct Schizophrenia Suicide attempt by drug overdose Surgical History Surgical History History of vasectomy Social History Social History Smoking status: Current every day smoker Tobacco type: cigarettes Alcohol intake: former Substance use: current Substance use type: marijuana Gender identity (if verbalized by the patient): Male Exam Narrative: Exam Narrative: GENERAL: Well-appearing, well-nourished, and in no acute distress. HEAD: Normocephalic, atraumatic. EYES: EOMI. CHEST: Clear to auscultation. No respiratory distress. No wheezes rales or rhonchi HEART: Regular rate and rhythm. No murmur heard. Normal peripheral pulses. ABDOMEN: Soft, nontender, nondistended, normal active bowel sounds. EXTREMITIES: Normal range of motion. No edema. SKIN: Warm, dry, no rash. Callus formation to the plantar surface of the right great toe, likely plantar wart, without surrounding erythema or warmth to suggest infection NEURO: No focal deficits. Alert and oriented x3. PSYCH: Normal mood and affect Course Vital Signs Vital signs: Vital Signs Temperature 98.4 F 02/06/21 12:40 Pulse Rate 54 L 02/06/21 12:40 Respiratory Rate 14 02/06/21 12:40 Blood Pressure 141/77 H 02/06/21 12:40 Pulse Oximetry 99 02/06/21 12:40 Temperature 98.4 F 02/06/21 12:40 Pulse Rate 54 L 02/06/21 12:40 Respiratory Rate 14 02/06/21 12:40 Blood Pressure 141/77 H 02/06/21 12:40 Pulse Oximetry 99 02/06/21 12:40 Medical Decision Making MDM Narrative Medical decision making narrative: Patient presents to the emergency department with multiple complaints. Complaining of frequent urination and low back pain. Reporting concern for STDs. Also reported a wound to the plantar surface of the right great toe. He is afebrile and nontoxic-appearing. CBC is without leukocytosis. Metabolic panel without concerning findings. UA without evidence of infection. Chlamydia, gonorrhea and trichomonas were sent. Patient wanted to be presumptively treated for these. Patient also noting some testicular discomfort, no acute abnormalities noted on scrotal ultrasound. Right great toe x-rays without acute findings. Wound consistent with likely a plantar wart. Patient instructed on care of this. Will be presumptively treated for STDs and was instructed to follow-up with his primary care doctor. He was given warnings to return to the ER Vital Signs Vital Signs: Vital Signs Temperature 98.4 F 01/23
--- NOTE | 2021-02-06 15:07 | PC.NURSE ---
LOUANN Gallego, made aware that patient was a moderate risk via [place] suicide scale. Also made aware that during reassessment that the patient was a low risk upon reassessment.
[2021-02-06 15:16] LABS: Glucose Point of Care 79 (65-105)
--- NOTE | 2021-02-06 15:17 | PC.NURSE ---
Pt states he forgot to tell anyone but that he is also having testicular pain where I shouldn't have pain . States that he's had vasectomies x2 and that he has no innervation to his testicles, so they should never hurt. LOUANN Gallego, made aware.
[2021-02-06 16:05] LABS: Basophils Absolute Auto 0.1 K/mm3 (0.0-0.1); Basophils Percent Auto 0.5 % (0.2-1.2); Eosinophils Absolute Auto 0.1 K/mm3 (0-0.3); Eosinophils Percent Auto 0.8 % (0-4.4); Hematocrit 45.1 % (42.0-52.0); Hemoglobin 15.9 g/dL (14.0-18.0); Immature Granulocyte Absolute 0.03 K/mm3 (0.00-0.031); Immature Granulocyte Percent A 0.3 % (0-0.5); Lymphocytes Absolute Auto 2.84 K/mm3 (0.9-3.2); Lymphocytes Percent Auto 29.6 % (18.3-44.2); Mean Corpuscular HGB Conc 35.3 g/dl (32-36); Mean Corpuscular Hemoglobin 31.1 pg (26-34); Mean Corpuscular Volume 88.1 fl (80-100); Mean Platelet Volume 9.6 fl (7.4-10.4); Monocytes Absolute Auto 0.5 K/mm3 (0.1-0.6); Monocytes Percent Auto 4.9 % (2.6-8.5); Neutrophils Absolute Auto 6.1 K/mm3 (1.3-6.7); Neutrophils Percent Auto 63.9 % (45.5-73.1); Platelet Count Result 223 k/mm3 (150-375); Red Blood Count 5.12 M/mm3 (4.6-6.20); Red Cell Distribution Width 13.1 % (11.5-14.5); White Blood Count 9.6 K/mm3 (4.5-10.0)
[2021-02-06 16:15] LABS: Alanine Aminotransferase 20 U/L (4-50); Albumin Level 4.5 g/dL (3.5-5.1); Alkaline Phosphatase 72 U/L (38-126); Anion Gap 3 mmol/L (8-16); Aspartate Amino Transferase 43 U/L (17-59); Bilirubin,Total 0.8 mg/dL (0.2-1.3); Blood Urea Nitrogen 7 mg/dL (9-20); Calcium 9.1 mg/dL (8.4-10.2); Carbon Dioxide 30 mmol/L (22-30); Chloride 107 mmol/L (98-107); Estimated CRCL calculation 77 ml/min; Estimated Glomerular Filt Rate > 60; Glucose 94 mg/dL (75-110); Lipase 33 U/L (23-300); Sodium 140 mmol/L (137-145)
[2021-02-06] MEDS: cefTRIAXone 250 MG VIAL 500 MG IM (16:55)
[2021-02-06] MEDS: LIDOCAINE HCL 1% LOCAL INJ 20 ML VIAL (16:55)
== END 2021-02-06 17:05 | disposition home or self-care (01) ==
PROVIDERS: General Practice; Physician Assistant; Emergency Provider Emergency Medicine; PCP Family Medicine
DX: R35.0 Frequency of micturition (principal); B07.0 Plantar wart; N50.819 Testicular pain, unspecified; F17.210 Nicotine dependence, cigarettes, uncomplicated
CPT/HCPCS: 36415; 73660; 76870; 80048; 80076; 81003; 82948; 83690; 85025; 87491; 87591; 87661; 93976; 96372; 99284; J0696

== ENCOUNTER 2025-04-09 14:33 | Emergency (ER) | payer OTHER, SELFPAY ==
--- NOTE | ~2025-04-09 | XR_ITS ---
EXAMINATION: XR shoulder RT min 2V DATE: 04/09/2025 16:45 INDICATION: Right shoulder pain and limited range of motion TECHNIQUE: AP internally and externally rotated, AP oblique externally rotated and transscapular Y vi ews of the right shoulder were obtained. COMPARISON: None FINDINGS: Normal alignment. No fracture. Glenohumeral joint is normal. Acromioclavicular joint is normal. Soft tissues are unremarkable. Visualized portion of the lungs are clear. IMPRESSION: Normal right shoulder radiographs. Reviewed, dictated and finalized at location B.
[2025-04-09 14:37] VITALS: BP 133/80; PULSE 59; RESP 18; TEMP 36.4; O2SAT 100
--- OUTSIDE RECORDS SUMMARY | 2025-04-09 15:42 | XMS_ITS | Clinical Summary ---
Author Organization [facility] Address [address] [place] [address] Phone Care Team Providers Care Construction Teacher Name Role Phone Se Stanley MD Primary Care Provider Allergies Active Allergy Reactions Criticality Noted Date Comments Shellfish Allergy Anaphylaxis 10/18/2015 Medications haloperidol (HALDOL) 5 MG Tablet Take 5 mg by mouth daily. Active benztropine (COGENTIN) 1 MG Tablet Take 1 mg by mouth daily. 5 Active raNITIdine (ZANTAC) 150 MG Tablet Take 1 Tab by mouth 2 times daily. 180 Tab 3 8 Active ondansetron (ZOFRAN ODT) 4 MG TABLET DISPERSIBLE Take 1 Tab by mouth every 8 hours as needed for Nausea - 1st line. 10 Tab 8 Active lactulose (CHRONULAC) 10 GM/15ML Solution Take 30 mL by mouth 2 times daily. 1 Bottle 3 8 Active promethazine (PHENERGAN) 12.5 MG Tablet Take 12.5 mg by mouth 4 times daily as needed. Active paliperidone (INVEGA) 156 MG/ML Suspension 156 mg by Intramuscular route every 28 days. Active mirtazapine (REMERON) 15 MG Tablet Take 15 mg by mouth nightly. Active hydrOXYzine (VISTARIL) 25 MG Capsule Take 25 mg by mouth 3 times daily as needed. Active citalopram (CELEXA) 20 MG Tablet Take 20 mg by mouth daily. Active busPIRone (BUSPAR) 10 MG Tablet Take 10 mg by mouth 2 times daily. Active cyclobenzaprine (FLEXERIL) 10 MG Tablet Take 10 mg by mouth 3 times daily as needed. Active Active Problems No known active problems Family History Medical History Relation Name Comments No Known Problems Father Cancer Maternal Aunt colon Hypertension Maternal Grandmother TIA Hypertension Mother Colon Cancer Other aunt Relation Name Status Comments Father Alive Maternal Aunt Maternal Grandmother Mother Alive Other aunt Social History Tobacco Use Types Packs/Day Years Used Date Smoking Tobacco: Never Smokeless Tobacco: Never Alcohol Use Standard Drinks/Week Comments Yes 2 (1 standard drink = 0.6 oz pur e alcohol) occassionally Sex and Gender Information Value Date Recorded Sex Assigned at Not on file 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 Gender Identity Not on file Sexual Orientation Not on file Occupation Industry Job Start Date Job End Date Unemployed Not on file Not on file Not on file Last Filed Vital Signs Vital Sign Reading Time Taken Comments Blood Pressure 131/85 05/19/2018 11:33 AM CDT Pulse 45 05/19/2018 11:33 AM CDT Temperature 36 C (96.8 F) 05/19/2018 11:33 AM CDT Respiratory Rate 17 05/19/2018 11:33 AM CDT Oxygen Saturation 100% 05/19/2018 11:33 AM CDT Inhaled Oxygen Concentration - - Weight 76.2 kg (168 lb) 05/05/2018 11:00 AM CDT Height 170.2 cm (5' 7) 05/05/2018 11:00 AM CDT Body Mass Index 26.31 05/05/2018 11:00 AM CDT Plan of Treatment Health Maintenance Due Date Last Done Comments Hepatitis C Virus (HCV) Screening 1993 TdaP Immunization 1993 Human Papillomavirus (HPV) Immunization (1 - Male 3-dose series) 2008 Hepatitis B Immunization (1 of 3 - 19+ 3-dose series) 2012 SARS-COV-2 Immunization (1 - 2023- season) 2024 Influenza Immunization (Seas on Ended) 2025 07/18/2015 Respiratory Syncytial Virus (RSV) Immunization (Adult) (1 - 1-dose 75+ series) 2068 DTaP/Tdap/Td Immunization Discontinued 07/18/2015 Meningococcal Immunization (ACWY) Aged Out No longer eligible based on patient's age to complete this topic Pneumococcal Immunization Combined Aged Out No longer eligible based on patient's age to complete this topic Rotavirus Immunization Aged Out No lo nger eligible based on patient's age to complete this topic Insurance [place] Care Teams Construction Teacher Relationship Specialty Start Date End Date Se Stanley MD [address] [address] PCP - General Family Medicine 03/03/18
--- OUTSIDE RECORDS SUMMARY | 2025-04-09 15:42 | XMS_ITS | Clinical Summary ---
Author Organization [facility] Address [address] [place] [address] Care Team Providers Care Supervisor Cell Efficiency Name Role Phone Se Stanley MD Primary Care Provider + [phone] [facility],non-owned Affiliates and Associated Physician Practices is amultiple site organization consisting of ambulatory clinics and hospital sitesin [place]. This disclosure is being madepursuant to the Care Everywhere program and may not contain all information available regarding this patient. Last updated 18.[facility] Allergies Active Allergy Reactions Criticality Noted Date Comments Shellfish Allergy Anaphylaxis High 10/18/2015 Throat swelling in Er... Medicines given.. Discharged home.. No artificial airway needed Medications * Be aware that medications may not be up to date on this document. Alwaysverify current medications with the patient. SUMAtriptan (IMITREX) 100 MG tablet TK 1 T PO AOS OF MIGRAINE. MAY REPEAT AFTER 2 H IF MIDDLETON RETURNS. NTE 200 MG IN 24 H 11 9 Active metoclopramide (REGLAN) 5 MG tablet Take 5 mg by mouth 3 times daily before meals Active ARIPiprazole, sensor, 15 MG TABS Take 20 mg by mouth once daily Active topiramate (TOPAMAX) 50 MG tabletIndicatio ns:Basilar migraine Take 1 tablet by mouth 2 times daily 60 tablet 11 9 Active gabapentin (NEURONTIN) 300 MG capsuleIndicati ons:Basilar migraine Take 1 capsule by mouth 3 times daily 90 capsule 11 9 Active amphetamine-dex troamphetamine (ADDERALL) 10 MG tablet Take 10 mg by mouth every morning Active aspirin (ASPIRIN) 81 MG tablet Take 81 mg by mouth once daily Active mirtazapine (REMERON) 15 MG tablet TK 1 T PO HS 1 9 Active ondansetron, disintegrating, (ZOFRAN ODT) 4 MG tablet DISSOLVE 1 TABLET ON TONGUE Q 6 TO 8 H PRN FOR NAUSEA 0 9 Active docusate sodium (COLACE) 100 MG capsule Take 1 capsule by mouth once daily Please take until you stop taking pain medication 30 capsule 1 9 Active oxyCODONE, immediate release, (ROXICODONE) 5 MG tablet Take 1 tablet by mouth every 6 hours as needed for Pain 15 tablet 9 Active Active Problems Problem Noted Date Diagnosed Date Neurocardiogenic syncope 07/27/2019 Assessment & Plan (07/27/2019 3:20 PM CDT): Given the pt's age, presentation, and unremarkable echo and event monitor, the patient likely has neurocardiogenic syncope. Vasovagal syncope, or neurocardiogenic syncope, is a type of syncope that results from unopposed parasympathetic activity. It is a very common, physiologic phenomenon usually seen in young individuals, and does not portend a poor prognosis. This unopposed parasympathetic activity is usually preceded by intense sympathetic activity that can result from any number of conditions such as psychological anxiety, hypovolemia, exercise, or orthostatic stress from prolonged periods of standing. The etiology of this paradoxical response to maintain cardiac output in times of stress is unclear, but believed to be a protective mechanism evolved to protect vital vascular structures from being damaged due to increased hydrostatic pressure. The hallmarks of this conduction is a prodrome of dizziness, lightheadedness, nausea, sometimes vomiting, and malaise. After the syncope, similar findings are noted, along with diaphoresis and cool, clammy skin, and tend to last a couple of hours before the patient fully recovers. Treatment can be difficult, but centers around behavior modification and avoiding triggers. Fortunately he has not had any recurrences. Leg exercises such as muscle pumping, tip-toeing, and leg crossing during times of prolonged standing can blunt the intense sympathetic activity that leads to vasovagal syncope. Since he is doing so well, no need to follow with me currently. 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 Now resolved Social History Tobacco Use Types Packs/Day Years Used Date Smoking Tobacco: Former Cigarettes Q uit: 2019 Smokeless Tobacco: Never Alcohol Use Standard Drinks/Week Comments No 0 (1 standard drink = 0.6 oz pur e alcohol) Sex and Gender Information Value Date Recorded Sex Assigned at Not on file Legal Sex Male 5:59 PM CDT Gender Identity Not on file Sexual Orientation Not on file Last Filed Vital Signs Vital Sign Reading Time Taken Comments Blood Pressure 131/70 08/09/2019 4:54 PM CDT Pulse 43 08/09/2019 4:54 PM CDT Temperature 36.4 C (97.6 F) 08/09/2019 4:54 PM CDT Respiratory Rate 16 08/09/2019 4:54 PM CDT Oxygen Saturation 98% 08/09/2019 4:54 PM CDT Inhaled Oxygen Concentration - - Weight 77.1 kg (170 lb) 08/09/2019 12:11 PM CDT Height 170.2 cm (5' 7) 08/09/2019 12:11 PM CDT Body Mass Index 26.63 08/09/2019 12:11 PM CDT Plan of Treatment Health Maintenance Due Date Last Done Comments HIV SCREENING 2008 HEPATITIS C SCREENING 11/28/2011 DTAP/TDAP/TD VACCINES (1 - Tdap) 2012 HEPATITIS B VACCINE (1 of 3 - 19+ 3-dose series) 2012 COVID-19 VACCINE (2023-2 5 season) 2024 DEPRESSION SCREENING 10/25/2024 INFLUENZA VACCINE (Season Ended) 2025 ZOSTER VACCINE (1 of 2) 2043 HIB VACCINE Aged Out No longer eligi ble based on patient's age to complete this topic HPV VACCINE Aged Out No longer eligi ble based on patient's age to complete this topic MENINGOCOCCAL (Group B) VACC INE SHARED DECISION-MAKING Aged Out No longer eligibl e based on patient's age to complete this topic MENINGOCOCCAL GROUPS A/C/Y/W VACCINE Aged Out No longer eligible b ased on patient's age to complete this topic PNEUMOCOCCAL VACCINE Aged Out No long er eligible based on patient's age to complete this topic [place] [address] MEDICAID - [facility] [place] [address] MEDICARE Care Teams Supervisor Cell Efficiency Relationship Specialty Start Date End Date Se Stanley MD [address] [place] [address] PCP - General Family Medicine 01/29/18
--- OUTSIDE RECORDS SUMMARY | 2025-04-09 15:43 | XMS_ITS | Data Portability ---
Author Organization [facility] LEEANNAnu Fontana H Address [address] [place] [address] Care Team Providers Care Health Counselor Name Role Phone HAYLEE HOLLY OTHER Assessment No assessment recorded. Plan of Treatment Reminders Order Date Submit Date Provider Last Modified By Organization Details Last Modified Time Details Appointments None recorded. Lab CBC 2014 015 [facility], [address], [address], [place], [address], 5 09:32:28 CMP, serum or plasma 2014 015 [facility], [address], [address], [place], [address], 5 09:32:29 urinalysis, dipstick 2014 015 [email or web address] In-Office Order, Internal Use Only DO Not Attach Compendium DO Not Attach Compendium, Do Not Delete/merge, [id number] 5 14:14:12 CBC 2014 015 [facility], [address], [address], [place], [address], 5 09:54:19 CMP, serum or plasma 2014 015 [facility], [address], [address], [place], [address], 5 09:54:20 TSH, serum or plasma 2014 015 [facility], [address] [facility], [address], [place], [address], 5 09:54:21 Referral None recorded. Procedures None recorded. Surgeries None recorded. Imaging ultrasound, abdominal, complete - Recurrent RLQ abdominal pain 2014 015 [email or web address] 1 [facility], [address] [place], [address], 5 15:33:14 Medication Orders permethrin 5 % topical cream 2014 015 [id number], [address] , [place], [place], [id number], 5 09:08:36 Patient TargetsNo targets recorded. Patient Instructions Encounter Date Encounter Id Patient Instructions Last Modified By Organization Details Last Modified Time 08/23/2015 [id number] rash: care instructions [email or web address] Not available 08/26/2015 09:52:02 09/17/2015 [id number] scabies: care instructions [email or web address] Not available 09/18/2015 09:41:34 Reason for Referral None Reported. Results Created Date Observation Date Name Description Value Unit Range Abnormal Flag Note LastModifiedBy Organization Detail LastModifiedTime 10/16/20 15 10/16/2015 urina lysis , dipst ick Leukocytes Negati ve Not Available In-Office Order Internal Use Only DO Not Attach Compendium DO Not Attach Compendium, Do Not Delete/merge, [id number] 10/16/2015 10:19:34 10/16/20 15 10/16/2015 urina lysis , dipst ick Nitrite negati ve Not Available In-Office Order Internal Use Only DO Not Attach Compendium DO Not Attach Compendium, Do Not Delete/merge, [id number] 10/16/2015 10:19:34 10/16/20 15 10/16/2015 urina lysis , dipst ick Urobilinogen .2 Not Available In-Of fice Order Internal Use Only DO Not Attach Compendium DO Not Attach Compendium, Do Not Delete/merge, [id number] 10/16/2015 10:19:34 10/16/20 15 10/16/2015 urina lysis , dipst ick Protein Trace Not Available In-Office Order Internal Use Only DO Not Attach Compendium DO Not Attach Compendium, Do Not Delete/merge, [id number] 10/16/2015 10:19:34 10/16/20 15 10/16/2015 urina lysis , dipst ick pH 5.0 Not Available In-Office Order Internal Use Only DO Not Attach Compendium DO Not Attach Compendium, Do Not Delete/merge, [id number] 10/16/2015 10:19:34 10/16/20 15 10/16/2015 urina lysis , dipst ick Blood Negati ve Not Available In-Office Order Internal Use Only DO Not Attach Compendium DO Not Attach Compendium, Do Not Delete/merge, 10/16/2015 10:19:34 10/16/20 15 10/16/2015 urina lysis , dipst ick Specific [place] 1.030 Not Available In-Off ice Order Internal Use Only DO Not Attach Compendium DO Not Attach Compendium, Do Not Delete/merge, 10/16/2015 10:19:34 10/16/20 15 10/16/2015 urina lysis , dipst ick Ketone Trace Not Available In-Office Order Internal Use Only DO Not Attach Compendium DO Not Attach Compendium, Do Not Delete/merge, 10/16/2015 10:19:34 10/16/20 15 10/16/2015 urina lysis , dipst ick Bilirubin Small Not Available In-Offic e Order Internal Use Only DO Not Attach Compendium DO Not Attach Compendium, Do Not Delete/merge, 10/16/2015 10:19:34 10/16/20 15 10/16/2015 urina lysis , dipst ick Glucose Negati ve Not Available In-Office Order Internal Use Only DO Not Attach Compendium DO Not Attach Compendium, Do Not Delete/merge, [id number] 10/16/2015 10:19:34 07/24/20 15 07/25/2015 CBC WBC 7.5 x10e3 /uL 3.4-10 .8 Not Available [facility] ([facility]) [address] [place], [address], 07/25/2015 09:54:19 07/24/20 15 07/25/2015 CBC RBC 5.20 x10e6 /uL 4.14-5 .80 Not Available [facility] ([facility]) [address] [place], [address], 07/25/2015 09:54:19 07/24/20 15 07/25/2015 CBC hemoglobin 15.3 g/dL 12.6-1 7.7 Not Available [facility] ([facility]) [address] [place], [address], 07/25/2015 09:54:19 07/24/20 15 07/25/2015 CBC hematocrit 43.2 % 37.5-5 1.0 Not Available [facility] ([facility]) [address] [place], [address], 07/25/2015 09:54:19 07/24/20 15 07/25/2015 CBC MCV 83 fL 79-97 Not Available [facility] ([facility]) [address] [place], [address], 07/25/2015 09:54:19 07/24/20 15 07/25/2015 CBC MCH 29.4 pg 26.6-3 3.0 Not Available [facility] ([facility]) [address] [place], [address], 07/25/2015 09:54:19 07/24/20 15 07/25/2015 CBC MCHC 35.4 g/dL 31.5-3 5.7 Not Available [facility] ([facility]) [address] [place], [address], 07/25/2015 09:54:19 07/24/20 15 07/25/2015 CBC RDW 13.5 % 12.3-1 5.4 Not Available [facility] ([facility]) [address] [place], [address], 07/25/2015 09:54:19 07/24/20 15 07/25/2015 CBC platelets 261 x10e3 /uL 150-37 9 Not Available [facility] ([facility]) [address] [place], [address], 07/25/2015 09:54:19 07/24/20 15 07/25/2015 CBC neutrophils 52 % Not Avai lable [facility] ([facility]) [address] [place], [address], 07/25/2015 09:54:19 07/24/2007/25/2015 CBC lymphs 40 % Not Available [facility] ([facility]) [address] [place], [address], 07/25/2015 09:54:19 07/24/20 15 07/25/2015 CBC monocytes 6 % Not Availa ble [facility] ([facility]) [address] [place], [address], 07/25/2015 09:54:19 07/24/2007/25/2015 CBC eos 1 % Not Available [facility] ([facility]) [address] [place], [address], 07/25/2015 09:54:19 07/24/2007/25/2015 CBC basos 1 % Not Available [facility] ([facility]) [address] [place], [address], 07/25/2015 09:54:19 07/24/2007/25/2015 CBC immature cells EMERGENCY RESPONSE COORDINATOR Not Available [facility] [address] [place], [address], 07/25/2015 09:54:19 07/24/20 15 07/25/2015 CBC neutrophils (absolute) 3.9 x10e3 /uL 1.4-7. 0 Not Available [facility] ([facility]) [address] [facility], [place], [address], 07/25/2015 09:54:19 07/24/20 15 07/25/2015 CBC lymphs (absolute) 3.0 x10e3 /uL 0.7-3. 1 Not Available [facility] ([facility]) [address] [facility], [place], [address], 07/25/2015 09:54:19 07/24/20 15 07/25/2015 CBC monocytes(ab solute) 0.5 x10e3 /uL 0.1-0. 9 Not Available [facility] ([facility]) [address] [facility], [place], [address], 07/25/2015 09:54:19 07/24/20 15 07/25/2015 CBC eos (absolute) 0.1 x10e3 /uL 0.0-0. 4 Not Available [facility] ([facility]) [address] [facility], [place], [address], 07/25/2015 09:54:19 07/24/20 15 07/25/2015 CBC baso (absolute) 0.1 x10e3 /uL 0.0-0. 2 Not Available [facility] ([facility]) [address] [facility], [place], [address], 07/25/2015 09:54:19 07/24/2007/25/2015 CBC immature granulocytes 0 % Not Available [facility]) [address] [facility], [place], [address], 07/25/2015 09:54:19 07/24/20 15 07/25/2015 CBC immature grans (abs) 0.0 x10e3 /uL 0.0-0. 1 Not Available [facility] ([facility]) [address] [facility], [place], [address], 07/25/2015 09:54:19 07/24/2007/25/2015 CBC NRBC EMERGENCY RESPONSE COORDINATOR Not Available [facility] ([facility]) [address] [place], [address], 07/25/2015 09:54:19 07/24/2007/25/2015 CBC hematology comments: NOTE: VERIF IED BY JOE Hodgson Not Available [facility] ([facility]) [address] [place], [address], 07/25/2015 09:54:19 07/24/2007/25/2015 CMP, serum or plasm a glucose, serum 78 mg/dL 65-99 Not Available [facility]) [address] [place], [address], 07/25/2015 09:54:20 07/24/20 15 07/25/2015 CMP, serum or plasm a BUN 10 mg/dL 6-20 Not Available [facility] ([facility]) [address] [place], [address], 07/25/2015 09:54:20 07/24/2007/25/2015 CMP, serum or plasm a creatinine, serum 1.09 mg/dL 0.76-1 .27 Not Available [facility] ([facility]) [address] [place], [address], 07/25/2015 09:54:20 07/24/20 15 07/25/2015 CMP, serum or plasm a eGFR if nonafricn AM 97 mL/mi n/1.7 3 >59 Not Available [facility] ([facility]) [address] [place], [address], 07/25/2015 09:54:20 07/24/20 15 07/25/2015 CMP, serum or plasm a eGFR if africn AM 112 mL/mi n/1.7 3 >59 Not Available [facility] ([facility]) [address] [place], [address], 07/25/2015 09:54:20 07/24/20 15 07/25/2015 CMP, serum or plasm a BUN/creatini ne ratio 9 8-19 Not Available [facility]) [address] [place], [address], 07/25/2015 09:54:20 07/24/20 15 07/25/2015 CMP, serum or plasm a sodium, serum 141 mmol/ L 134-14 4 Not Available [facility] ([facility]) [address] [place], [address], 07/25/2015 09:54:20 07/24/20 15 07/25/2015 CMP, serum or plasm a potassium, serum 4.6 mmol/ L 3.5-5. 2 Not Available [facility] ([facility]) [address] [facility], [place], [address], 07/25/2015 09:54:20 07/24/20 15 07/25/2015 CMP, serum or plasm a chloride, serum 99 mmol/ L 97-108 Not Available [facility] ([facility]) [address] [place], [address], 07/25/2015 09:54:20 07/24/20 15 07/25/2015 CMP, serum or plasm a carbon dioxide, total 24 mmol/ L 18-29 Not Available [facility] ([facility]) [address] [place], [address], 07/25/2015 09:54:20 07/24/20 15 07/25/2015 CMP, serum or plasm a calcium, serum 9.7 mg/dL 8.7-10 .2 Not Available [facility] ([facility]) [address] [place], [address], 07/25/2015 09:54:20 07/24/20 15 07/25/2015 CMP, serum or plasm a protein, total, serum 7.7 g/dL 6.0-8. 5 Not Available [facility] ([facility]) [address] [facility], [place], [address], 07/25/2015 09:54:20 07/24/20 15 07/25/2015 CMP, serum or plasm a albumin, serum 4.5 g/dL 3.5-5. 5 Not Available [facility] ([facility]) [address] [place], [address], 07/25/2015 09:54:20 07/24/20 15 07/25/2015 CMP, serum or plasm a globulin, total 3.2 g/dL 1.5-4. 5 Not Available [facility] ([facility]) [address] [place], [address], 07/25/2015 09:54:20 07/24/20 15 07/25/2015 CMP, serum or plasm a A/G ratio 1.4 1.1-2. 5 Not Available [facility] ([facility]) [address] [facility], [place], [address], 07/25/2015 09:54:20 07/24/20 15 07/25/2015 CMP, serum or plasm a bilirubin, total 1.0 mg/dL 0.0-1. 2 Not Available [facility] ([facility]) [address] [facility], [place], [address], 07/25/2015 09:54:20 07/24/20 15 07/25/2015 CMP, serum or plasm a alkaline phosphatase, S 66 IU/L 39-117 Not Available [facility]) [address] [facility], [place], [address], 07/25/2015 09:54:20 07/24/20 15 07/25/2015 CMP, serum or plasm a AST (SGOT) 19 IU/L 0-40 Not Available [facility] ([facility]) [address] [place], [address], 07/25/2015 09:54:20 07/24/20 15 07/25/2015 CMP, serum or plasm a ALT (SGPT) 13 IU/L 0-44 Not Available [facility] ([facility]) [address] [place], [address], 07/25/2015 09:54:20 07/24/20 15 07/25/2015 TSH, serum or plasm a TSH 1.540 uIU/m L 0.450- 4.500 Not Available [facility] ([facility]) [address] [place], [address], 07/25/2015 09:54:21 10/16/20 15 10/17/2015 CBC WBC 7.2 x10e3 /uL 3.4-10 .8 Not Available [facility] ([facility]) [address] [place], [address], 10/17/2015 06:23:53 10/16/20 15 10/17/2015 CBC RBC 5.03 x10e6 /uL 4.14-5 .80 Not Available [facility] ([facility]) [address] [place], [address], 10/17/2015 06:23:53 10/16/20 15 10/17/2015 CBC hemoglobin 14.8 g/dL 12.6-1 7.7 Not Available [facility] ([facility]) [address] [place], [address], 10/17/2015 06:23:53 10/16/20 15 10/17/2015 CBC hematocrit 43.2 % 37.5-5 1.0 Not Available [facility] ([facility]) [address] [place], [address], 10/17/2015 06:23:53 10/16/20 15 10/17/2015 CBC MCV 86 fL 79-97 Not Available [facility] ([facility]) [address] [place], [address], 10/17/2015 06:23:53 10/16/20 15 10/17/2015 CBC MCH 29.4 pg 26.6-3 3.0 Not Available [facility] ([facility]) [address] [place], [address], 10/17/2015 06:23:53 10/16/20 15 10/17/2015 CBC MCHC 34.3 g/dL 31.5-3 5.7 Not Available [facility] ([facility]) [address] [place], [address], 10/17/2015 06:23:53 10/16/20 15 10/17/2015 CBC RDW 14.1 % 12.3-1 5.4 Not Available [facility] ([facility]) [address] [place], [address], 10/17/2015 06:23:53 10/16/20 15 10/17/2015 CBC platelets 214 x10e3 /uL 150-37 9 Not Available [facility] ([facility]) [address] [place], [address], 10/17/2015 06:23:53 10/16/20 15 10/17/2015 CBC neutrophils 66 % Not Avai lable [facility] ([facility]) [address] [place], [address], 10/17/2015 06:23:53 10/16/20 15 10/17/2015 CBC lymphs 28 % Not Available [facility] ([facility]) [address] [place], [address], 10/17/2015 06:23:53 10/16/20 15 10/17/2015 CBC monocytes 4 % Not Availa ble [facility] ([facility]) [address] [place], [address], 10/17/2015 06:23:53 10/16/20 15 10/17/2015 CBC eos 1 % Not Available [facility] ([facility]) [address] [place], [address], 10/17/2015 06:23:53 10/16/20 15 10/17/2015 CBC basos 1 % Not Available [facility] ([facility]) [address] [place], [address], 10/17/2015 06:23:53 10/16/20 15 10/17/2015 CBC immature cells EMERGENCY RESPONSE COORDINATOR Not Available [facility] [address] [place], [address], 10/17/2015 06:23:53 10/16/20 15 10/17/2015 CBC neutrophils (absolute) 4.7 x10e3 /uL 1.4-7. 0 Not Available [facility] ([facility]) [address] [place], [address], 10/17/2015 06:23:53 10/16/20 15 10/17/2015 CBC lymphs (absolute) 2.0 x10e3 /uL 0.7-3. 1 Not Available [facility] ([facility]) [address] [place], [address], 10/17/2015 06:23:53 10/16/20 15 10/17/2015 CBC monocytes(ab solute) 0.3 x10e3 /uL 0.1-0. 9 Not Available [facility] ([facility]) [address] [place], [address], 10/17/2015 06:23:53 10/16/20 15 10/17/2015 CBC eos (absolute) 0.1 x10e3 /uL 0.0-0. 4 Not Available [facility] ([facility]) [address] [place], [address], 10/17/2015 06:23:53 10/16/20 15 10/17/2015 CBC baso (absolute) 0.0 x10e3 /uL 0.0-0. 2 Not Available [facility] ([facility]) [address] [place], [address], 10/17/2015 06:23:53 10/16/20 15 10/17/2015 CBC immature granulocytes 0 % Not Available [facility] [address] [place], [address], 10/17/2015 06:23:53 10/16/20 15 10/17/2015 CBC immature grans (abs) 0.0 x10e3 /uL 0.0-0. 1 Not Available [facility] ([facility]) [address] [place], [address], 10/17/2015 06:23:53 10/16/20 15 10/17/2015 CBC NRBC EMERGENCY RESPONSE COORDINATOR Not Available [facility] ([facility]) [address] [place], [address], 10/17/2015 06:23:53 10/16/20 15 10/17/2015 CBC hematology comments: EMERGENCY RESPONSE COORDINATOR Not Available [facility]) [address] [place], [address], 10/17/2015 06:23:53 10/16/20 15 10/17/2015 CMP, serum or plasm a glucose, serum 85 mg/dL 65-99 Not Available [facility]) [address] [place], [address], 10/17/2015 06:23:53 10/16/20 15 10/17/2015 CMP, serum or plasm a BUN 10 mg/dL 6-20 Not Available [facility] ([facility]) [address] [place], [address], 10/17/2015 06:23:53 10/16/20 15 10/17/2015 CMP, serum or plasm a creatinine, serum 1.21 mg/dL 0.76-1 .27 Not Available [facility] ([facility]) [address] [place], [address], 10/17/2015 06:23:53 10/16/20 15 10/17/2015 CMP, serum or plasm a eGFR if nonafricn AM 85 mL/mi n/1.7 3 >59 Not Available [facility] ([facility]) [address] [place], [address], 10/17/2015 06:23:53 10/16/20 15 10/17/2015 CMP, serum or plasm a eGFR if africn AM 98 mL/mi n/1.7 3 >59 Not Available [facility] ([facility]) [address] [place], [address], 10/17/2015 06:23:53 10/16/20 15 10/17/2015 CMP, serum or plasm a BUN/creatini ne ratio 8 8-19 Not Available [facility] ([facility] [address] [place], [address], 10/17/2015 06:23:53 10/16/20 15 10/17/2015 CMP, serum or plasm a sodium, serum 139 mmol/ L 134-14 4 Not Available [facility] ([facility]) [address] [place], [address], 10/17/2015 06:23:53 10/16/20 15 10/17/2015 CMP, serum or plasm a potassium, serum 4.2 mmol/ L 3.5-5. 2 Not Available [facility] ([facility]) [address] [place], [address], 10/17/2015 06:23:53 10/16/20 15 10/17/2015 CMP, serum or plasm a chloride, serum 101 mmol/ L 97-108 Not Available [facility] ([facility]) [address] [place], [address], 10/17/2015 06:23:53 10/16/20 15 10/17/2015 CMP, serum or plasm a carbon dioxide, total 25 mmol/ L 18-29 Not Available [facility] ([facility]) [address] [place], [address], 10/17/2015 06:23:53 10/16/20 15 10/17/2015 CMP, serum or plasm a calcium, serum 9.0 mg/dL 8.7-10 .2 Not Available [facility] ([facility]) [address] [place], [address], 10/17/2015 06:23:53 10/16/20 15 10/17/2015 CMP, serum or plasm a protein, total, serum 7.4 g/dL 6.0-8. 5 Not Available [facility] ([facility]) [address] [place], [address], 10/17/2015 06:23:53 10/16/20 15 10/17/2015 CMP, serum or plasm a albumin, serum 4.4 g/dL 3.5-5. 5 Not Available [facility] ([facility]) [address] [place], [address], 10/17/2015 06:23:53 10/16/20 15 10/17/2015 CMP, serum or plasm a globulin, total 3.0 g/dL 1.5-4. 5 Not Available [facility] ([facility]) [address] [place], [address], 10/17/2015 06:23:53 10/16/20 15 10/17/2015 CMP, serum or plasm a A/G ratio 1.5 1.1-2. 5 Not Available [facility] ([facility]) [address] [place], [address], 10/17/2015 06:23:53 10/16/20 15 10/17/2015 CMP, serum or plasm a bilirubin, total 1.1 mg/dL 0.0-1. 2 Not Available [facility] ([facility]) [address] [place], [address], 10/17/2015 06:23:53 10/16/20 15 10/17/2015 CMP, serum or plasm a alkaline phosphatase, S 57 IU/L 39-117 Not Available [facility]) [address] [place], [address], 10/17/2015 06:23:53 10/16/20 15 10/17/2015 CMP, serum or plasm a AST (SGOT) 16 IU/L 0-40 Not Available [facility] ([facility]) [address] [facility], [place], [address], 10/17/2015 06:23:53 10/16/20 15 10/17/2015 CMP, serum or plasm a ALT (SGPT) 7 IU/L 0-44 Not Available [facility] ([facility]) [address] [place], [address], 10/17/2015 06:23:53 08/25/20 15 08/25/2015 imagi ng/di agnos tic resul t No observ ation record ed. [email or web address] [facility] [address] [place], [address], 08/26/2015 14:33:33 10/17/20 15 10/17/2015 ultra sound , abdom inal, compl ete No observ ation record ed. [facility] [address] [place], [address], 11/01/2015 17:16:54 Result Notes None recorded. 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 Medical Equipment None Reported. Allergies Allergen ID Allergen Name Allergen Category Reaction Reaction Severity Criticality Documentation Date Start Date Code Code System Note Provider Name and Address Organization Details Recorded Time 40106 shellfish derived food,medi cation itching Not available Not available 07/18/2015 51387 Que GandaraCharitydevang juarezPAUL null, [facility] 5 11:42:37 Medications Name Sig Start Date Stop Date Status Note LastModified by Organization Details LastModified Time ondansetron hcl 4 mg tabs active Not Available Not Availabl e Not Available benztropine mesylate 0.5 mg tabs Take 1 tablet by mouth at bed time active Not Available Not Available No t Available triamcinolone acetonide 0.1 % crea active Not Available Not Available Not Available ciprofloxacin hcl 500 mg tabs active Not Available Not Available Not Available ziprasidone hcl 20 mg caps Take 1 tablet by mouth every day active Not Available Not Available No t Available famotidine 40 mg tabs active Not Available Not Available Not Available buspirone hcl 5 mg tabs active Not Available Not Available No t Available metronidazole 500 mg tabs active Not Available Not Available Not Available divalproex sodium dr 500 mg tbec active Not Available Not Available Not Available permethrin 5 % crea active Not Available Not Available Not Available haloperidol 5 mg tabs Take 1 tablet by mouth at bed time active Not Available Not Available No t Available haloperidol decanoate 100 mg/ml soln active Not Available Not Available N ot Available ziprasidone hcl 40 mg caps active Not Available Not Availab le Not Available buspirone 5 mg tablet active Not Available Not Available Not Available lamotrigine 150 mg tablet TAKE 1 TABLET BY MOUTH DAILY active Not Available Not Available No t Available clonidine HCl 0.1 mg tablet TAKE 1 TABLET BY MOUTH DAILY active Not Available Not Available No t Available benztropine 0.5 mg tablet active Not Available Not Availabl e Not Available haloperidol 5 mg tablet active Not Available Not Available No t Available trazodone 50 mg tablet active Not Available Not Available No t Available haloperidol decanoate 100 mg/mL intramuscular solution active Not Available Not Available Not Available ondansetron HCl 4 mg tablet active Not Available Not Available Not Available famotidine 40 mg tablet active Not Available Not Available No t Available permethrin 5 % topical cream APPLY (THOROUGH LY MASSAGE INTO SKIN FROM HEAD TO SOLES OF FEET) BY TOPICAL ROUTE ONCE LEAVE ON FOR 8-14 HR, THEN REMOVE BY THOROUGH WASHING active Not Available Not Available No t Available metronidazole 500 mg tablet active Not Available Not Availabl e Not Available divalproex 500 mg tablet,delayed release active Not Available Not Available Not Available ciprofloxacin 500 mg tablet active Not Available Not Availabl e Not Available quetiapine 100 mg tablet TAKE 1 TABLET BY MOUTH AT BEDTIME active Not Available Not Available No t Available triamcinolone acetonide 0.1 % topical cream active Not Available Not Available Not Available lamotrigine 25 mg tablet TAKE 1 TABLET BY MOUTH DAILY active Not Available Not Available No t Available ziprasidone 20 mg capsule active Not Available Not Available N ot Available trazodone 100 mg tablet active Not Available Not Available No t Available haloperidol 10 mg tablet active Not Available Not Available No t Available benztropine 1 mg tablet TAKE 1 TABLET BY MOUTH TWICE DAILY active Not Available Not Available No t Available zolpidem 5 mg tablet TAKE 1 TABLET BY MOUTH AT BEDTIME active Not Available Not Available No t Available ziprasidone 40 mg capsule active Not Available Not Available N ot Available fluoxetine 20 mg capsule TAKE 1 CAPSULE BY MOUTH EVERY MORNING active Not Available Not Available No t Available aripiprazole 10 mg tablet TAKE 1 TABLET BY MOUTH DAILY active Not Available Not Available No t Available aripiprazole 2 mg tablet TAKE 1 TABLET BY MOUTH DAILY active Not Available Not Available No t Available Invega Sustenna 156 mg/mL intramuscular syringe active Not Available Not Available Not Available Vitals Date Recorded Respiratory rate Body weight Oxygen saturation Oxygen saturation in Arterial blood by Pulse oximetry Body height Body mass index (BMI) Body temperature Heart rate Systolic blood pressure Diastolic blood pressure Provider Name and Address Organization Details Last Updated DateTime 5 16 /min 78926.4 4787 g 100 % 100 % 167.64 cm 24.4 kg/m2 98.1 [degF] 60 /min 130 mm[Hg] 80 mm[Hg] Charity juarez [facility] 5 11:56:11 Date Recorded Respiratory rate Body weight Oxygen saturation Oxygen saturation in Arterial blood by Pulse oximetry Body height Body mass index (BMI) Body temperature Heart rate Systolic blood pressure Diastolic blood pressure Provider Name and Address Organization Details Last Updated DateTime 5 12 /min 72923.7 92297 g 100 % 100 % 167.64 cm 24.1 kg/m2 97.7 [degF] 52 /min 116 mm[Hg] 86 mm[Hg] Izzy Ott [facility] 5 10:41:51 Date Recorded Respiratory rate Body weight Oxygen saturation Oxygen saturation in Arterial blood by Pulse oximetry Body height Heart rate Body mass index (BMI) Systolic blood pressure Diastolic blood pressure Provider Name and Address Organization Details Last Updated DateTime 5 16 /min 10967.8 555 g 99 % 99 % 167.64 cm 100 /min 24.2 kg/m2 120 mm[Hg] 80 mm[Hg] Charity juarez [facility] 5 16:30:17 Date Recorded Body weight Oxygen saturation Oxygen saturation in Arterial blood by Pulse oximetry Body height Body mass index (BMI) Body temperature Heart rate Systolic blood pressure Diastolic blood pressure Provider Name and Address Organization Details Last Updated DateTime 5 06064.9 29287 g 98 % 98 % 167.64 cm 23.6 kg/m2 97.9 [degF] 68 /min 122 mm[Hg] 78 mm[Hg] Nisa Ruby [facility] 5 09:08:35 Social History Question Answer Notes LastModified by [email or web address] Details LastModified Time Tobacco Smoking Status Never Smoker PAUL Mckoy, [facility] 07/18/2015 11:42:37 What Is Your Level Of Caffeine Consumption? Heavy [email or web address] Information not available 10/16/2015 Sex: Unknown Functional Status Question Answer Note LastModified by [email or web address] ion Details LastModified Time What is your level of alcohol consumption? Occasional 2 beers every few weeks [email or web address] Information not available 07/18/2015 Mental Status None recorded. Family History Relationship Description Onset Age of this Age Resolved Age Notes LastModified by Organization Details LastModified Time Mother Essential hypertension [email or web address] Not available 09:08:35 Medical History Condition Response Coronary Artery Disease N Other N High Blood Pressure N Atrial Fibrillation N Kidney or Bladder Problems N Thyroid Problems N GI Problems N Depression Y COPD N Blood Clots N Skin Problems N Anemia Y Heart Attack (DE) N Anxiety Disorder Y Diabetes N Muscle, Joint, or Bone Problems N Seizures/Epilepsy N Acid Reflux (GERD) N Cancer N Stroke N Asthma N Allergies Y High Cholesterol N Hepatitis N Liver Disease N Headaches N Heart Failure N Osteoporosis N Immunizations Vaccine Type Date Status Note Provider Nam e and Address Organization Details Recorded Time Td (adult), 5 Lf tetanus toxoid, preservative free, adsorbed 5 completed Not Available [facility] 11/11/2019 02:31:44 Influenza, split virus, quadrivalent, preservative 5 completed Not Available [facility] 11/11/2019 02:32:09 Past Encounters Encounter ID Performer Location Encounter Start Date Encounter Closed Date Diagnosis/Indication Diagnosis SNOMED-CT Code Diagnosis ICD10 Code Diagnosis Note [id number] MD Eliseo Sharma (Adult Med) [address] [place] [address] 07/18/2015 10:52:30 07/18/2015 12:40:05 Atypical chest pain 069033407 No active chest pain now. No risk factors. Not a smoker,no f/o of heart disease. Could be musculoske letol chest pain. Follow up as needed. Tiredness symptom 163231313 C/O tiredness H/o Anemia. Check labs. Schizoaffe ctive disorder 99505702 Following Psychiatri st Influenza vaccine needed 9875117688 106 Administra tion of tetanus vaccine [id number] MD Eliseo Sharma (Adult Med) [address] [place] [address] 08/23/2015 10:32:29 08/26/2015 10:20:27 Eruption 212866174 R21 Patient is c/o rash on the penis,butt ocks and groin.Phys ical examinatio n showed no specific rash. C/O itchying. Advised patient to try otc Benadryl for itchying and follow up if he developed any rash. [id number] MD Eliseo Sharma (Adult Med) [address] [place] [address] 09/17/2015 16:02:13 09/17/2015 17:53:08 Infestation by Sarcoptes scabiei chevy hominis [id number] B86 Advised patient to use Permethrin . Advised patient keep the clothing,l inen,stuff ed animals in a plastic bag for three days and machine wash with hot water and ironing. All the family members and close contacts need to be treated at the same time. Use claritin or Benadryl for itcgying. If the new lesions appeared,yaa eden repeat the treatment in 2 weeks. [id number] MD Eliseo Sharma (Adult Med) [address] [place] [address] 10/16/2015 08:50:47 10/17/2015 15:33:14 Right lower quadrant pain 515910709 R10.31 Patient has tenderness at the RLQ,no rebound tenderness . Afebrile. Urine dipstick is negative. Will do CBC,CMP and U/S abdomen. Advised patient to go to ER if he developed severe pain,vomin shannon juares Follow up on 10/28/15. Health Concerns Section Related Observation LastModified by Organization Detai ls LastModified Time None Recorded Concern Status LastModified by Organization Details LastModified Time None Recorded Advance Directives Directive None Recorded Payers Insurance Date Sequence Insurance Name Policy Number Policy Knott Covered Member ID Knott Member ID Guarantor Name 10/21/2023 1 [facility] (MEDICAID HMO) Tyrone Sanchez [id number] Tyrone Sanchez Notes Date Note Type Note Provider Name and Address Organization Details Recorded Time 10/16/2015 text/html Abdominal PainReported bypatient.Location: RLQ Quality:sharp Severity:pain level 5/10 Duration:constant Context:history of kidney stones Associated Symptoms:no fever; no chills; no blood in the urine; no heartburn; no shortness of breathNotes:Patient is c/o RLQ abdominal pain for 2 months.He went to ER and received Ciprofloxacin and Metronidazole in August.Pain improved with antibiotics.Pain started again 4 weeks ago.Patient went to urgent care [facility] yesterday. UA was negative and Urine for Gonorrhea and Chlamydia was sent to the lab.Patient is still c/o pain some nausea,no urine frequency,no hematuria,no dysuria,no penile discharge,no fever. SILVER Ba - [facility] 10/16/2015 14:14:21
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
--- OUTSIDE RECORDS SUMMARY | 2025-04-09 15:43 | XMS_ITS | Patient Health Record ---
Author Organization [facility] Address [address] [place] [address] Care Team Providers Care Aviation Technician Name Role Phone Virginie Mota Primary Care Provider [phone] Allergies No Known Allergies Reason For Referral No Information Medications Medication SIG (Take, Route, Fr equency, Duration) Notes Start Date End Date Status ARIPiprazole 30 MG 1 tablet Orally Once a day for 30 days Active Mirtazapine 15 MG 1 tablet at bedtime Orally Once a day for 30 days Active Cyproheptadine HCl 4 MG 1 tablet Orally Twice a day for 30 day(s) 06/23/2021 Active lamoTRIgine 25 MG two tablets Orally T wice a day for 30 days Active Social History Sex Assigned At : Social History Observation Description Sex Assigned At Male Problems Problem Type SNOMED Code ICD Code Onset Dates Problem Status W/U Status Risk Notes Problem 95352238 Post traumatic stress disorder (PTSD) (F43.10) Active confirmed Problem 45848222 Severe episode of recurrent major depressive disorder, with psychotic features (F33.3) Active confirmed Plan Of Treatment No Information Insurance Providers Payer Name Payer Address Payer Phone Subscriber Number Group Number Insured Name Patient Relationship to Insured Coverage Start Date Coverage End Date MEDICARE PART A [address] [place] [phone] [id number] Tyrone Roberts Self - patient is the insured 2 MEDICAID [address] [place] [address] [id number] Rosiocathleensena Tyrone juarez Self - patient is the insured 1 Medical (General) History Surgical History Surgery Date(Month/Year) Hospitalization History Reason Date(Month/Year) VALE Paulino
--- OUTSIDE RECORDS SUMMARY | 2025-04-09 15:43 | XMS_ITS | Clinical Summary ---
Author Organization [facility] Address [address] [place] [address] Care Team Providers Care Braider Setter Name Role Phone No, Physician Primary Care Provider [phone] No, Physician Unavailable Allergies Active Allergy Reactions [...] 12/23/2023 Assessment & Plan (11/20/2024 2:47 PM SPORTS MEDICINE SPECIALIST): Hx of traumatic cataract with dense vitreous [...] evaluation Assessment & Plan (12/31/2023 1:15 PM SPORTS MEDICINE SPECIALIST): Presented to ED 11/17 with wire penetrating [...] Cornea Assessment & Plan (12/24/2023 4:52 PM SPORTS MEDICINE SPECIALIST): Presented to ED 11/17 with wire penetrating [...] Cornea Assessment & Plan (12/07/2023 4:01 PM SPORTS MEDICINE SPECIALIST): Presented to ED 11/17 with wire penetrating [...] duty. Assessment & Plan (11/30/2023 10:42 AM SPORTS MEDICINE SPECIALIST): Presented to ED 11/17 with wire penetrating [...] detachments Assessment & Plan (11/24/2023 3:31 PM SPORTS MEDICINE SPECIALIST): Presented to ED 11/17 with wire penetrating [...] week Assessment & Plan (11/18/2023 10:18 AM SPORTS MEDICINE SPECIALIST): Presented to ED 11/17 with wire penetrating [...] seek urgent/emergent care including calling Suicide Hotline (059 or ) or 911. Follow up in [...] Immunization Administration Dates Next Due Tdap 11/17/2023 Surgical History Surgery Date Site/Laterality Comments VASECTOMY 10/25/2016 - 10/24/2017 states had another one in 2019 EYE FOREIGN BODY REMOVAL 11/17/2023 Left cornea and lens penetration from wire (Dr. Whitney/ Dr. Ackerman) COLONOSCOPY UPPER GASTROINTESTINAL ENDOSCOPY EYE SURGERY 04/24/2024 Left complex phaco/pars plana vitrectomy (Dr. Narvaez/ Dr. Leelee Banks/ Dr. Todd) Medical History Medical History Date Comments Homeless Chronic back pain Tobacco dependence Depression Family History Medical History Relation Name Comments Stroke Paternal Grandmother Relation Name Status Comments Paternal Grandmother Social History Tobacco Use Types Packs/Day Years [...] on file Legal Sex Male 2:03 AM SPORTS MEDICINE SPECIALIST Gender Identity Not on file Sexual Orientation Not on file Obstetrics History Last Filed Vital Signs Vital Sign Reading [...] 04/19/2024 10:20 AM CDT Plan of Treatment Health Maintenance Due Date Last Done Comments Depression Screening 1993 Hepatitis C Screening 1993 Varicella Vaccines (1 of 2 - 13+ 2-dose series) 2006 Hepatitis B Screening 2011 Regular Well Visit/Exam 18-64 2011 Pneumococcal vaccine <65 (1 of 2 - PCV) 2012 Influenza Vaccine (Season Ended) 2025 07/18/2015 DTaP/Tdap/Td Vaccine (2 - Td or Tdap) 11/17/2033 11/17/2023, 07/18/2015 HPV Vaccines Aged Out No longer eligi ble based on patient's age to complete this topic Medical Devices Implanted Type Area Water Gas Operator Device Identifier Shelf Expiration Date Model / Serial / Lot [employer] Acrysof 6mm 13mm Multipiece Foldable Anterior Asymmetric Uv Ma60ac.235 - [id number] - [id number] Implanted:Qty: 1 on 04/24/2024 by Rush Todd II, MD at [facility] Lens Left: Lens [employer] [id number] 06/10/2025 MA60AC.23 5 / [id number] [place] [id number] [facility] MEDICARE IDPA [facility] [place] Care Teams Braider Setter Relationship Specialty Start Date End Date No, Physician PCP - General 01/25/24 No, Physician 01/25/24
--- OUTSIDE RECORDS SUMMARY | 2025-04-09 15:43 | XMS_ITS | Clinical Summary ---
Author Organization [facility] Address [address], [place] [address] Phone Care Team Providers Care Inspector Toys Name Role Phone Se Stanley MD Primary Care Provider [phone] Allergies Active Allergy Reactions Criticality Noted Date Comments Shellfish Allergy Anaphylaxis High 10/18/2015 Medications ARIPiprazole (ABILIFY) 15 MG tablet TK 1 T PO HS 0 04/17/2019 Active gabapentin (NEURONTIN) 100 MG capsule Take by mouth. 10/26/2018 Active promethazine (PHENERGAN) 25 MG tablet TK 1 T PO EVERY 4 TO 6 HOURS NEEDED FOR NAUSEA 0 03/05/2019 Active SUMAtriptan (IMITREX) 100 MG tablet TK 1 T PO AOS OF MIGRAINE. MAY REPEAT AFTER 2 H IF MIDDLETON RETURNS. 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 Mental disorder 02/03/2018 Back pain Schizophrenia Family History Medical History Relation Comments Kidney disease Neg Hx Nephrolithiasis Neg Hx Social History Tobacco Use Types Packs/Day Years Used Date Smoking Tobacco: Some Days Smokeless Tobacco: Never Alcohol Use Standard Drinks/Week Comments No 0 (1 standard drink = 0.6 oz pur e alcohol) AUDIT-C Answer Date Recorded Frequency of Alcohol Consumption Never 04/19/2019 Average Number of Drinks Not on file 019 Frequency of Binge Drinking Not on file 03/26 Sex and Gender Information Value Date Recorded Sex Assigned at Not on file Legal Sex Male 10:31 AM MDT Gender Identity Not on file Sexual Orientation Not on file Last Filed Vital Signs Vital Sign Reading Time Taken Comments Blood Pressure 128/80 04/19/2019 8:52 AM CDT Pulse - - Temperature 36.8 C (98.2 F) 04/19/2019 8:52 AM CDT Respiratory Rate - - Oxygen Saturation - - Inhaled Oxygen Concentration - - Weight 77.6 kg (171 lb) 04/19/2019 8:52 AM CDT Height 170.2 cm (5' 7) 04/19/2019 8:52 AM CDT Body Mass Index 26.78 04/19/2019 8:52 AM CDT Plan of Treatment Health Maintenance Due Date Last Done Comments Influenza Vaccine (Season Ended) 2025 Insurance MEDICAID - [place] MEDICARE Care Teams Inspector Toys Relationship Specialty Start Date End Date Se Stanley MD [address] [address] PCP - General Internal Medicine 6/24/19
--- NOTE | 2025-04-09 15:48 | ED_ITS ---
HPI - Extremity Problem General Chief complaint: Extremity Problem,Nontraumatic Stated complaint: Right shoulder pain Time Seen by Provider: 04/09/25 15:48 Source: patient Mode of arrival: ambulatory Limitations: no limitations History of Present Illness HPI Narrative: Patient is a 29 y/o male, with past medical history of schizophrenia, who presents to the ED with report of right shoulder pain. Patient reports he has been having pain throughout his right shoulder for the past 9 months. States over the last 1 month, it has become worse. He denies any fall or injury. Has not taken anything consistently for pain. States he does not perform any heavy lifting as he is currently on social security disability. Denies numbness or weakness. Related Data Allergies Allergy/AdvReac Type Severity Reaction Status Date / Time shellfish derived Allergy Severe ANAPHYLAXIS Verified 12/31/20 08:39 Review of Systems Review of Systems: All systems reviewed & are unremarkable except as noted in HPI. All systems reviewed & are unremarkable except as noted in HPI and below PMFSH Past Medical History Medical History (Updated 04/09/25 @ 17:08 by Loren Green PA-C) Schizophrenia Renal infarct Suicide attempt by drug overdose PTSD (post-traumatic stress disorder) Depression Anxiety Migraines Surgical History Surgical History History of vasectomy Social History Social History Smoking status: Current every day smoker Tobacco type: cigarettes Alcohol intake: former Substance use: current Substance use type: marijuana Gender identity (if verbalized by the patient): Male Sexual Orientation (if Verbalized by the Patient): Straight or Heterosexual Exam Narrative: GENERAL: Well appearing, well-nourished, non-toxic, in no acute distress. HEAD: Normocephalic, atraumatic. RESPIRATORY: Airway patent, respirations nonlabored. CARDIOVASCULAR: Regular rate and rhythm. radial pulses easily palpable. MUSCULOSKELETAL: Moves all extremities. No gross deformities. No significant focal tenderness throughout right shoulder joint. Able to flex and abduct R shoulder to about 90? before reporting discomfort. Sensation intact throughout R upper extremity. SKIN: Warm, dry, normal color. NEURO: A&O X3. Speech clear. Cranial nerves II-XII grossly intact. Steady gait. No ataxic movements. Equal transfer table operator strength bilaterally. PSYCHIATRIC: Appropriate mood and affect. Normal interaction. Course Vital Signs Vital signs: Vital Signs Temperature 97.5 F L 04/09/25 14:37 Pulse Rate 59 L 04/09/25 14:37 Respiratory Rate 18 04/09/25 14:37 Blood Pressure 133/80 04/09/25 14:37 Pulse Oximetry 100 04/09/25 14:37 Oxygen Delivery Room Air 04/09/25 14:37 Temperature 97.5 F L 04/09/25 14:37 Pulse Rate 49 L 04/09/25 16:20 Respiratory Rate 18 04/09/25 16:20 Blood Pressure 119/73 04/09/25 16:20 Pulse Oximetry 100 04/09/25 16:20 Oxygen Delivery Room Air 04/09/25 14:37 MDM - Extremity (Nontraumatic) MDM Narrative Medical decision making narrative: Patient?s injury is consistent with musculoskeletal etiology. No signs of neurologic or vascular compromise on physical examination. Compartments are soft without signs of compartment syndrome. XR of right shoulder negative. Pain is consistent with shoulder sprain. Patient is felt to be stable for discharge home and further outpatient management and treatment. will refer to orthopedics for further evaluation. Given return precautions. Discussed rice therapy. D/C in stable condition. Medical Records Attestation: I reviewed the patient's medical records. Imaging Data Attestation: I personally reviewed and interpreted this imaging study as follows: Radiologist's impression: ITS Impressions Shoulder X-Ray 04/09/25 16:49 IMPRESSION: Normal right shoulder radiographs. Discharge Plan Discharge Clinical Impression: Strain of right shoulder Qualifiers: Encounter type: initial encounter Qualified Code(s): S46.911A - Strain of unspecified muscle, fascia and tendon at shoulder and upper arm level, right arm, initial encounter Patient Disposition: Home Condition: Stable Instructions: Antibiotic Form, Rotator Cuff Injury (ED), Shoulder Sprain (ED) Additional Instructions: Your imaging did not show any abnormalities. Follow-up with orthopedics for further evaluation. Continue Tylenol and ibuprofen as needed for pain. Return for new or worsening concerns. Patient Language: Tajik Prescriptions: No Action famotidine [Pepcid] 20 mg tablet 20 mg PO BID Qty: 10 0RF metoclopramide HCl [Reglan] 10 mg tablet 10 mg PO Q4-6H PRN (Reason: nausea and vomiting) Qty: 14 0RF famotidine [Pepcid] 20 mg tablet 20 mg PO BID Qty: 14 0RF hyoscyamine sulfate [Levsin] 0.125 mg tablet 0.125 mg PO QID Qty: 7 0RF metronidazole 500 mg tablet 500 mg PO Q12H 7 Days Qty: 14 0RF doxycycline hyclate 100 mg capsule 100 mg PO BID 7 Days Qty: 14 0RF Follow-up/Referrals: Zechariah Thompson MD [Physician] - (ORTHOPEDICS) Se Stanley MD [Physician] - Time of Disposition: 17:08
[2025-04-09 16:20] VITALS: BP 119/73; PULSE 49; RESP 18; O2SAT 100
--- OUTSIDE RECORDS SUMMARY | 2025-04-09 17:24 | XMS_ITS | Clinical Summary ---
Author Organization [facility] Address [address], [place] [address] Phone Care Team Providers Care Bass Viol Repairer Name Role Phone Se Stanley MD Primary Care Provider [phone] Allergies Active Allergy Reactions Criticality Noted Date [...] Insurance MEDICAID - [place] MEDICARE Care Teams Bass Viol Repairer Relationship Specialty Start Date End Date Se Stanley MD [address] [address] PCP - General Internal Medicine 6/24/19
--- OUTSIDE RECORDS SUMMARY | 2025-04-09 17:24 | XMS_ITS | Clinical Summary ---
Author Organization [facility] Address [address] [place] [address] Care Team Providers Care Flag Signalman Name Role Phone No, Physician Primary Care Provider [phone] No, Physician Unavailable Allergies Active Allergy Reactions [...] 12/23/2023 Assessment & Plan (11/20/2024 2:47 PM LEAD NUCLEAR MEDICINE TECHNOLOGIST): Hx of traumatic cataract with dense vitreous [...] evaluation Assessment & Plan (12/31/2023 1:15 PM LEAD NUCLEAR MEDICINE TECHNOLOGIST): Presented to ED 11/17 with wire penetrating [...] Cornea Assessment & Plan (12/24/2023 4:52 PM LEAD NUCLEAR MEDICINE TECHNOLOGIST): Presented to ED 11/17 with wire penetrating [...] Cornea Assessment & Plan (12/07/2023 4:01 PM LEAD NUCLEAR MEDICINE TECHNOLOGIST): Presented to ED 11/17 with wire penetrating [...] duty. Assessment & Plan (11/30/2023 10:42 AM LEAD NUCLEAR MEDICINE TECHNOLOGIST): Presented to ED 11/17 with wire penetrating [...] detachments Assessment & Plan (11/24/2023 3:31 PM LEAD NUCLEAR MEDICINE TECHNOLOGIST): Presented to ED 11/17 with wire penetrating [...] week Assessment & Plan (11/18/2023 10:18 AM LEAD NUCLEAR MEDICINE TECHNOLOGIST): Presented to ED 11/17 with wire penetrating [...] seek urgent/emergent care including calling Suicide Hotline (724 or ) or 911. Follow up in [...] on file Legal Sex Male 2:03 AM LEAD NUCLEAR MEDICINE TECHNOLOGIST Gender Identity Not on file Sexual Orientation [...] this topic Medical Devices Implanted Type Area Brine Tank Separator Operator Device Identifier Shelf Expiration Date Model / Serial / Lot [employer] Acrysof 6mm 13mm Multipiece Foldable Anterior Asymmetric Uv Ma60ac.235 - [id number] - [id number] Implanted:Qty: 1 on 04/24/2024 by Rush Todd II, MD at [facility] Lens Left: Lens [employer] [id number] 06/10/2025 MA60AC.23 5 / [id number] [place] [id number] [facility] MEDICARE IDPA [facility] [place] Care Teams Flag Signalman Relationship Specialty Start Date End Date No, Physician PCP - General 01/25/24 No, Physician 01/25/24
--- OUTSIDE RECORDS SUMMARY | 2025-04-09 17:24 | XMS_ITS | Clinical Summary ---
Author Organization [facility] Address [address] [address] Care Team Providers Care Forest Pathology Teacher Name Role Phone Se Stanley MD Primary Care Provider [phone] [facility],non-owned Affiliates and Associated Physician Practices is amultiple site organization consisting of ambulatory clinics and hospital sitesin [place], [place], [place] and [place]. This disclosure is being madepursuant to the Care Everywhere program and may not contain all information available regarding this patient. Last updated 18.[facility] Allergies Active Allergy Reactions Criticality Noted Date [...] age to complete this topic Insurance MEDICARE MEDICAID - [employer] MEDICAID - [place] MEDICARE Care Teams Forest Pathology Teacher Relationship Specialty Start Date End Date Se Stanley MD [address] [place] [address] PCP - General Family Medicine 01/29/18
--- OUTSIDE RECORDS SUMMARY | 2025-04-09 17:24 | XMS_ITS | Referral Summary ---
Author Organization [facility] Address [address] [place] [address] Care Team Providers Care Automobile Body Repairer Helper Name Role Phone No, Physician Primary Care Provider [phone] No, Physician Unavailable Allergies Active Allergy Reactions [...] 12/23/2023 Assessment & Plan (11/20/2024 2:47 PM SUPERVISOR HEADING): Hx of traumatic cataract with dense vitreous [...] evaluation Assessment & Plan (12/31/2023 1:15 PM SUPERVISOR HEADING): Presented to ED 11/17 with wire penetrating [...] Cornea Assessment & Plan (12/24/2023 4:52 PM SUPERVISOR HEADING): Presented to ED 11/17 with wire penetrating [...] Cornea Assessment & Plan (12/07/2023 4:01 PM SUPERVISOR HEADING): Presented to ED 11/17 with wire penetrating [...] duty. Assessment & Plan (11/30/2023 10:42 AM SUPERVISOR HEADING): Presented to ED 11/17 with wire penetrating [...] detachments Assessment & Plan (11/24/2023 3:31 PM SUPERVISOR HEADING): Presented to ED 11/17 with wire penetrating [...] week Assessment & Plan (11/18/2023 10:18 AM SUPERVISOR HEADING): Presented to ED 11/17 with wire penetrating [...] seek urgent/emergent care including calling Suicide Hotline (547 or ) or 911. Follow up in [...] on file Legal Sex Male 2:03 AM SUPERVISOR HEADING Gender Identity Not on file Sexual Orientation [...] on file Medical Devices Implanted Type Area Gear Lapping Machine Operator Device Identifier Shelf Expiration Date Model / Serial / Lot [employer] Acrysof 6mm 13mm Multipiece Foldable Anterior Asymmetric Uv Ma60ac.235 - [id number] - [id number] Implanted:Qty: 1 on 04/24/2024 by Rush Todd II, MD at [facility] Lens Left: Lens [employer] [id number] 06/10/2025 MA60AC.23 5 [id number] Insurance MEDICARE IDPA [facility] Care Teams Automobile Body Repairer Helper Relationship Specialty Start Date End Date No, Physician PCP - General 01/25/24 No, Physician 01/25/24
--- OUTSIDE RECORDS SUMMARY | 2025-04-09 17:24 | XMS_ITS | Clinical Summary ---
Author Organization [facility] Address [address] [place] [address] Phone Care Team Providers Care Auto Claims Adjuster Name Role Phone Se Stanley MD Primary Care Provider [phone] Allergies Active Allergy Reactions Criticality Noted Date [...] on file Legal Sex Male 2:53 PM INFORMATION TECHNOLOGY INTERN Gender Identity Not on file Sexual Orientation [...] this topic Insurance [place]ID [place] Care Teams Auto Claims Adjuster Relationship Specialty Start Date End Date Se Stanley MD [address] [address] PCP - General Family Medicine 03/03/18
== END 2025-04-09 17:48 | disposition home or self-care (01) ==
LOC: ANHED 17:21
PROVIDERS: Emergency Provider Physician Assistant
DX: S46.911A Strain of unspecified muscle, fascia and tendon at shoulder and upper arm level, right arm, initial encounter (principal); F17.210 Nicotine dependence, cigarettes, uncomplicated; F20.9 Schizophrenia, unspecified; F32.A Depression, unspecified; F41.9 Anxiety disorder, unspecified; X58.XXXA Exposure to other specified factors, initial encounter
CPT/HCPCS: 73030; 99283